=== PATIENT | male | born 1990 | race American Indian/Alaskan Native ===

== ENCOUNTER 2018-03-10 03:30 | Emergency (ER) | payer OTHER ==
[2018-03-10] MEDS ORDERED: Lidocaine 2% 20 ML MDV INFILT ONE (03:31)
--- NOTE | 2018-03-10 03:47 | EDM.PDOCBH ---
ED HPI GENERAL MEDICAL PROBLEM - General Time Seen by Provider: 03/10/18 03:35 Source of Information: Reports: Patient, EMS, Police History Limitations: Reports: No Limitations - History of Present Illness INITIAL COMMENTS - FREE TEXT/NARRATIVE: 27 y.o.NA came to the ed by EMS and the police after he tried to kill himself. Pt was intoxicated on arrival but was Ox3 stating he will not harm himself or others. He has 2 boys. He inflicted wound at his left forearm. Tetanus UTD 5-6 years ago. No N/V/D no other acute medical issues. BP 122/100 Pulse 122, RR 18 Pulse ox 100% on RA Temp 36.8 Onset Date: 03/10/18 Onset Time: 00:05 Duration: Minutes:, Constant Location: Reports: Upper Extremity, Left Quality: Reports: Ache, Burning Severity: Moderate Improves with: Reports: Rest Worsens with: Reports: Movement Context: Reports: Trauma (self inflicted wound) - Related Data Allergies Allergy/AdvReac Type Severity Reaction Status Date / Time No Known Allergies Allergy Verified 03/10/18 03:45 Home Meds: Home Meds Albuterol [Proventil HFA] 1 puff INH ASDIRECTED PRN 03/10/18 [History] Amoxicillin 1,000 mg PO BID 03/10/18 [History] Amoxicillin/Potassium Clav [Augmentin 875-125 Tablet] 1 each PO BID #20 tablet 03/10/18 [Rx] Ranitidine [Zantac] 75 mg PO DAILY 03/10/18 [History] ED ROS GENERAL - Review of Systems Review Of Systems: See Below Constitutional: Reports: No Symptoms HEENT: Reports: No Symptoms Respiratory: Reports: No Symptoms Cardiovascular: Reports: No Symptoms Endocrine: Reports: No Symptoms GI/Abdominal: Reports: No Symptoms : Reports: No Symptoms Musculoskeletal: Reports: No Symptoms Skin: Reports: No Symptoms Neurological: Reports: No Symptoms Psychiatric: Reports: Depression, Suicidal Ideation Hematologic/Lymphatic: Reports: No Symptoms Immunologic: Reports: No Symptoms ED EXAM, BEHAVIORAL HEALTH - Physical Exam Exam: See Below Exam Limited By: No Limitations General Appearance: Alert, WD/WN, Mild Distress Eye Exam: Bilateral Eye: Normal Inspection Ears: Normal External Exam, Normal Canal Nose: Normal Inspection, Normal Mucosa, No Blood Throat/Mouth: Normal Inspection Head: Atraumatic, Normocephalic Neck: Normal Inspection, Supple, Non-Tender, Full Range of Motion Respiratory/Chest: No Respiratory Distress, Lungs Clear, Normal Breath Sounds, No Accessory Muscle Use, Chest Non-Tender Cardiovascular: Normal Peripheral Pulses, Regular Rate, Rhythm, No Edema, No Gallop, No Murmur, No Rub GI/Abdominal: Normal Bowel Sounds, Soft, Non-Tender, No Organomegaly, No Abnormal Bruit, No Mass, Pelvis Stable (Male) Exam: Deferred Rectal (Males) Exam: Deferred Back Exam: Normal Inspection, Full Range of Motion Extremities: Normal Inspection, Normal Range of Motion, Non-Tender, No Pedal Edema, Normal Capillary Refill Neurological: Alert, Normal Mood/Affect, CN II-XII Intact, Normal Cognition, No Motor/Sensory Deficits, Oriented x 3 Skin Exam: Warm, Dry, Signs of self injury (left forearm) ED Add Procedures - Additional/Other Procedure(s) Procedure(s) (Free Text): Left forearm self inflicted wound 3 cm long. Linear. no bleeding cleaned wound with Betadine, local anesthesia 2% lidocaine 2 cc. 5 sutures applied using 4/0 Ethilon, TD UTD ( 5 years ago) No complication. Dressing applied by nurse. COURSE, BEHAVIORAL HEALTH COMP - Course Vital Signs: Last Vital Signs Temp 36.7 C 03/10/18 03:30 Pulse 122 H 03/10/18 03:30 Resp 18 03/10/18 03:30 BP 122/100 H 03/10/18 03:30 Pulse Ox 100 03/10/18 03:30 27 y.o.NA came to the ed by EMS and the police after he tried to kill himself. Pt was intoxicated on arrival but was Ox3 stating he will not harm himself or others. He has 2 boys. He inflicted wound at his left forearm. Tetanus UTD 5-6 years ago. No N/V/D no other acute medical issues. BP 122/100 Pulse 122, RR 18 Pulse ox 100% on RA Temp 36.8 PE: WNWD W M with a self inflicted cuts left forearm Labs: ETOH:0.30 HGB 17.4 BUN 6 Cr 1.1 K 3.1 Procedure: Please see note above Impression: Suicidal attempt, self inflicted wound left forearm, ETOH abuse Tx: Wound care, Rocephine, Thiamine 5.20 am; consultation: Stella Psych: Was cleared, not suicidal Reexam: Pt was cooperative in the ed Plan: D/C with instructions. His uncle picked him up and will observe him for the next 24 hours Orders, Labs, Meds: Laboratory Tests 03/10/18 03/10/18 03/10/18 Range/Units 03:45 03:45 03:45 WBC 8.8 (4.5-12.0) X10-3/uL RBC 5.19 (4.30-5.75) x10(6)uL Hgb 17.4 H (11.5-15.5) g/dL Hct 50.4 (30.0-51.3) % MCV 97.0 H (80-96) fL MCH 33.5 (27.7-33.6) pg MCHC 34.5 (32.2-35.4) g/dL RDW 12.1 (11.5-15.5) % Plt Count 383 H (125-369) X10(3)uL MPV 8.0 (7.4-10.4) fL Add Manual Diff Yes Neutrophils % (Manual) 21 L (46-82) % Lymphocytes % (Manual) 70 H (13-37) % Monocytes % (Manual) 7 (4-12) % Basophils % (Manual) 2 (0-2) % Sodium 140 (135-145) mmol/L Potassium 3.1 L (3.5-5.3) mmol/L Chloride 104 (100-110) mmol/L Carbon Dioxide 25 (21-32) mmol/L BUN 6 L (7-18) mg/dL Creatinine 1.1 (0.70-1.30) mg/dL Est Cr Clr Drug Dosing 90.60 mL/min Estimated GFR (MDRD) > 60 (>60) BUN/Creatinine Ratio 5.5 L (9-20) Glucose 113 (80-116) mg/dL Calcium 8.3 L (8.6-10.2) mg/dL TSH, Ultra Sensitive 3.96 H (0.36-3.74) IU/mL Salicylates 3.1 (2.8-20.0) mg/dL Urine Opiates Screen (NEGATIVE) Ur Oxycodone Screen (NEGATIVE) Ur Propoxyphene Screen (NEGATIVE) Acetaminophen < 2 L (10-30) ug/mL Ur Barbituates Screen (NEGATIVE) Ur Tricyclics Screen (NEGATIVE) Ur Phencyclidine Scrn (NEGATIVE) Ur Amphetamine Screen (NEGATIVE) Urine MDMA Screen (NEGATIVE) U Benzodiazepines Scrn (NEGATIVE) U Cocaine Metab Screen (NEGATIVE) U Marijuana (THC) Screen (NEGATIVE) Ethyl Alcohol 0.30 H* (<0.03) % 03/10/18 Range/Units 04:08 WBC (4.5-12.0) X10-3/uL RBC (4.30-5.75) x10(6)uL Hgb (11.5-15.5) g/dL Hct (30.0-51.3) % MCV (80-96) fL MCH (27.7-33.6) pg MCHC (32.2-35.4) g/dL RDW (11.5-15.5) % Plt Count (125-369) X10(3)uL MPV (7.4-10.4) fL Add Manual Diff Neutrophils % (Manual) (46-82) % Lymphocytes % (Manual) (13-37) % Monocytes % (Manual) (4-12) % Basophils % (Manual) (0-2) % Sodium (135-145) mmol/L Potassium (3.5-5.3) mmol/L Chloride (100-110) mmol/L Carbon Dioxide (21-32) mmol/L BUN (7-18) mg/dL Creatinine (0.70-1.30) mg/dL Est Cr Clr Drug Dosing mL/min Estimated GFR (MDRD) (>60) BUN/Creatinine Ratio (9-20) Glucose (80-116) mg/dL Calcium (8.6-10.2) mg/dL TSH, Ultra Sensitive (0.36-3.74) IU/mL Salicylates (2.8-20.0) mg/dL Urine Opiates Screen Negative (NEGATIVE) Ur Oxycodone Screen Negative (NEGATIVE) Ur Propoxyphene Screen Negative (NEGATIVE) Acetaminophen (10-30) ug/mL Ur Barbituates Screen Negative (NEGATIVE) Ur Tricyclics Screen Negative (NEGATIVE) Ur Phencyclidine Scrn Negative (NEGATIVE) Ur Amphetamine Screen Negative (NEGATIVE) Urine MDMA Screen Positive H (NEGATIVE) U Benzodiazepines Scrn Negative (NEGATIVE) U Cocaine Metab Screen Negative (NEGATIVE) U Marijuana (THC) Screen Negative (NEGATIVE) Ethyl Alcohol (<0.03) % Medications Discontinued Medications Generic Name Dose Route Start Last Admin Trade Name Jolie PRN Reason Stop Dose Admin Ceftriaxone Sodium 1 gm 03/10/18 04:02 03/10/18 05:16 Rocephin IM 03/10/18 04:03 1 gm ONETIME ONE Administration Potassium Chloride 40 meq 03/10/18 05:29 03/10/18 05:36 Klor-Con M20 PO 03/10/18 05:30 40 meq ONETIME ONE Administration Thiamine HCl 100 mg 03/10/18 05:31 03/10/18 05:37 Vitamin B-1 PO 03/10/18 05:32 100 mg ONETIME ONE Administration Departure - Departure Time of Disposition: 05:32 Disposition: Home, Self-Care 01 Condition: Good Clinical Impression: Injury, self-inflicted - Discharge Information Prescriptions: Amoxicillin/Potassium Clav [Augmentin 875-125 Tablet] 1 each PO BID #20 tablet Instructions: Alcohol Intoxication, [id number], Laceration Care, Adult, Easy- to-Read, Stitches, Eva, or Adhesive Wound Closure, [id number] Referrals: PCP,None [Primary Care Provider] - Forms: ED Department Discharge Additional Instructions: You need to be observed for next 24 hours by your uncle, please take the Abx as recommended, please apply Neosporin to wound twice daily for 10 days, please come back if your symptoms get worse acutely
[2018-03-10] MEDS ORDERED: cefTRIAXone 1 GM Vial IM ONE (04:02)
[2018-03-10 04:21] LABS: ACETAMINOPHEN < 2 ug/mL (10-30)
[2018-03-10] MEDS ORDERED: Potassium Chloride 20 MEQ Tab.ER PO ONE (05:29)
[2018-03-10] MEDS ORDERED: Thiamine 100 MG Tab PO ONE (05:31)
== END 2018-03-10 05:54 | disposition home or self-care (01) ==
LOC: FB.ED 03:30
DX: S51.812A Laceration without foreign body of left forearm, initial encounter (principal); F10.10 Alcohol abuse, uncomplicated; X78.9XXA Intentional self-harm by unspecified sharp object, initial encounter; Y90.8 Blood alcohol level of 240 mg/100 ml or more
CPT/HCPCS: 36415; 80048; 80305-QW; 84443; 85025; 96372; 99284; A9270-GY; G0480; J0696

== ENCOUNTER 2018-06-29 11:26 | Emergency (ER) | payer OTHER ==
[2018-06-29] MEDS: Sodium Chloride 0.9% 10 ML Syringe FLUSH PRN ×2 (11:48→12:18)
--- NOTE | 2018-06-29 12:01 | EDM.PDOC ---
ED HPI GENERAL MEDICAL PROBLEM - General Chief Complaint: Drug or Alcohol Abuse Time Seen by Provider: 06/29/18 11:45 Source of Information: Reports: Patient - History of Present Illness INITIAL COMMENTS - FREE TEXT/NARRATIVE: pt comes in asking for help to be detoxed from alcohol. pt report long Hx of alcoholism and inability to quit on his own , pt denies any illicit drug use, any hallucinations, any head injuries or any other medical concerns. report long Hx of anxiety and recurrent panic attacks. Headache Pain Score (Numeric/FACES): 5 - Related Data Allergies Allergy/AdvReac Type Severity Reaction Status Date / Time No Known Allergies Allergy Verified 06/29/18 11:34 Home Meds: Home Meds Albuterol [Proventil HFA] 1 puff INH ASDIRECTED PRN 03/10/18 [History] Ranitidine [Zantac] 75 mg PO DAILY 03/10/18 [History] Past Medical History Psychiatric History: Reports: Anxiety, Depression, Panic Attack. Denies: Suicide Attempt Social & Family History - Family History Family Medical History: Noncontributory - Caffeine Use Caffeine Use: Reports: None - Alcohol Use Days Per Week of Alcohol Use: 7 ED ROS GENERAL - Review of Systems Review Of Systems: See Below Constitutional: Reports: Fatigue HEENT: Reports: No Symptoms Respiratory: Reports: No Symptoms Cardiovascular: Reports: No Symptoms GI/Abdominal: Reports: No Symptoms, Nausea Musculoskeletal: Reports: No Symptoms Skin: Reports: No Symptoms Neurological: Reports: Confusion Psychiatric: Reports: No Symptoms, Anxiety, Confusion, Depression. Denies: Hallucinations, Homicidal Ideation, Suicidal Ideation ED EXAM, GENERAL - Physical Exam Exam: See Below Exam Limited By: Other (pt appear anxious) Course - Vital Signs Text/Narrative:: pt resting comfortably after ativan and fluids. labs results were reviewed with pt, pt now changed his mind about going to treatment, states that he feels fin and he think he can do this on his own. pt has reliable support and he is stable medically for discharge. Last Recorded V/S: Last Vital Signs Temp 36.3 C 06/29/18 11:30 Pulse 99 06/29/18 11:30 Resp 20 06/29/18 11:30 BP 154/92 H 06/29/18 11:30 Pulse Ox 99 06/29/18 11:30 - Orders/Labs/Meds Orders: Active Orders 24 hr Category Date Time Status Sodium Chloride 0.9% [Normal Saline] 1,000 ml Med 06/29/18 12:04 Active IV .BOLUS Sodium Chloride 0.9% [Saline Flush] Med 06/29/18 11:48 Active 10 ml FLUSH ASDIRECTED PRN Medication Orders Sodium Chloride (Normal Saline) 1,000 mls @ 999 drops/hr IV .BOLUS ONE Stop: 06/30/18 03:04 Last Admin: 06/29/18 12:16 Dose: 999 drops/hr Sodium Chloride (Saline Flush) 10 ml FLUSH ASDIRECTED PRN PRN Reason: IV Use Last Admin: 06/29/18 12:18 Dose: 10 ml Admin: 06/29/18 11:48 Dose: 10 ml Labs: Laboratory Tests 06/29/18 06/29/18 06/29/18 Range/Units 12:12 12:15 12:15 WBC 7.2 (4.5-12.0) X10-3/uL RBC 4.86 (4.30-5.75) x10(6)uL Hgb 16.1 (13.5-17.8) g/dL Hct 47.3 (30.0-51.3) % MCV 97.4 H (80-96) fL MCH 33.1 (27.7-33.6) pg MCHC 33.9 (32.2-35.4) g/dL RDW 11.7 (11.5-15.5) % Plt Count 162 (125-369) X10(3)uL MPV 8.8 (7.4-10.4) fL Neut % (Auto) 71.8 (46-82) % Lymph % (Auto) 16.1 (13-37) % [place] % (Auto) 9.5 (4-12) % Eos % (Auto) 0 L (1.0-5.0) % Baso % (Auto) 2 (0-2) % Neut # (Auto) 5.1 (1.6-8.3) # Lymph # (Auto) 1.2 (0.6-5.0) # [place] # (Auto) 0.7 (0.0-1.3) # Eos # (Auto) 0.0 (0.0-0.8) # Baso # (Auto) 0.2 (0.0-0.2) # Sodium 139 (135-145) mmol/L Potassium 3.9 (3.5-5.3) mmol/L Chloride 99 L D (100-110) mmol/L Carbon Dioxide 22 (21-32) mmol/L BUN 6 L (7-18) mg/dL Creatinine 0.8 (0.70-1.30) mg/dL Est Cr Clr Drug Dosing 119.07 mL/min Estimated GFR (MDRD) > 60 (>60) BUN/Creatinine Ratio 7.5 L (9-20) Glucose 84 (80-116) mg/dL Calcium 8.8 (8.6-10.2) mg/dL Total Bilirubin 1.8 H (0.1-1.3) mg/dL AST 103 H (5-25) IU/L ALT 105 H (12-36) U/L Alkaline Phosphatase 76 (56-112) IU/L Total Protein 7.4 (6.0-8.0) g/dL Albumin 3.9 (3.5-5.2) g/dL Globulin 3.5 g/dL Albumin/Globulin Ratio 1.1 Urine Opiates Screen Negative (NEGATIVE) Ur Oxycodone Screen Negative (NEGATIVE) Ur Propoxyphene Screen Negative (NEGATIVE) Ur Barbituates Screen Negative (NEGATIVE) Ur Tricyclics Screen Negative (NEGATIVE) Ur Phencyclidine Scrn Negative (NEGATIVE) Ur Amphetamine Screen Negative (NEGATIVE) Urine MDMA Screen Negative (NEGATIVE) U Benzodiazepines Scrn Negative (NEGATIVE) U Cocaine Metab Screen Negative (NEGATIVE) U Marijuana (THC) Screen Negative (NEGATIVE) Ethyl Alcohol (<0.03) % 06/29/18 Range/Units 12:15 WBC (4.5-12.0) X10-3/uL RBC (4.30-5.75) x10(6)uL Hgb (13.5-17.8) g/dL Hct (30.0-51.3) % MCV (80-96) fL MCH (27.7-33.6) pg MCHC (32.2-35.4) g/dL RDW (11.5-15.5) % Plt Count (125-369) X10(3)uL MPV (7.4-10.4) fL Neut % (Auto) (46-82) % Lymph % (Auto) (13-37) % [place] % (Auto) (4-12) % Eos % (Auto) (1.0-5.0) % Baso % (Auto) (0-2) % Neut # (Auto) (1.6-8.3) # Lymph # (Auto) (0.6-5.0) # [place] # (Auto) (0.0-1.3) # Eos # (Auto) (0.0-0.8) # Baso # (Auto) (0.0-0.2) # Sodium (135-145) mmol/L Potassium (3.5-5.3) mmol/L Chloride (100-110) mmol/L Carbon Dioxide (21-32) mmol/L BUN (7-18) mg/dL Creatinine (0.70-1.30) mg/dL Est Cr Clr Drug Dosing mL/min Estimated GFR (MDRD) (>60) BUN/Creatinine Ratio (9-20) Glucose (80-116) mg/dL Calcium (8.6-10.2) mg/dL Total Bilirubin (0.1-1.3) mg/dL AST (5-25) IU/L ALT (12-36) U/L Alkaline Phosphatase (56-112) IU/L Total Protein (6.0-8.0) g/dL Albumin (3.5-5.2) g/dL Globulin g/dL Albumin/Globulin Ratio Urine Opiates Screen (NEGATIVE) Ur Oxycodone Screen (NEGATIVE) Ur Propoxyphene Screen (NEGATIVE) Ur Barbituates Screen (NEGATIVE) Ur Tricyclics Screen (NEGATIVE) Ur Phencyclidine Scrn (NEGATIVE) Ur Amphetamine Screen (NEGATIVE) Urine MDMA Screen (NEGATIVE) U Benzodiazepines Scrn (NEGATIVE) U Cocaine Metab Screen (NEGATIVE) U Marijuana (THC) Screen (NEGATIVE) Ethyl Alcohol < 0.03 (<0.03) % Meds: Medications Generic Name Dose Route Start Last Admin Trade Name Freq PRN Reason Stop Dose Admin Sodium Chloride 1,000 mls @ 999 drops/hr 06/29/18 12:04 06/29/18 12:16 Normal Saline IV 06/30/18 03:04 999 drops/hr .BOLUS ONE Administration Sodium Chloride 10 ml 06/29/18 11:48 06/29/18 12:18 Saline Flush FLUSH 10 ml ASDIRECTED PRN Administration IV Use Discontinued Medications Generic Name Dose Route Start Last Admin Trade Name Freq PRN Reason Stop Dose Admin Lorazepam 1 mg 06/29/18 12:04 06/29/18 12:18 Ativan IVPUSH 06/29/18 12:05 1 mg ONETIME ONE Administration Departure - Departure Time of Disposition: 14:00 Disposition: Home, Self-Care 01 Clinical Impression: Alcohol abuse - Discharge Information *PRESCRIPTION DRUG MONITORING PROGRAM REVIEWED*: Not Applicable *COPY OF PRESCRIPTION DRUG MONITORING REPORT IN PATIENT LIVIA: Not Applicable Referrals: PCP,None [Primary Care Provider] - Forms: ED Department Discharge - Problem List & Annotations (1) Alcohol abuse SNOMED Code(s): 42181613 Code(s): F10.10 - ALCOHOL ABUSE, UNCOMPLICATED Status: Acute Current Visit: Yes - My Orders Last 24 Hours: My Active Orders 06/29/18 11:48 Sodium Chloride 0.9% [Saline Flush] 10 ml FLUSH ASDIRECTED PRN 06/29/18 12:04 Sodium Chloride 0.9% [Normal Saline] 1,000 ml IV .BOLUS - Assessment/Plan Last 24 Hours: My Active Orders 06/29/18 11:48 Sodium Chloride 0.9% [Saline Flush] 10 ml FLUSH ASDIRECTED PRN 06/29/18 12:04 Sodium Chloride 0.9% [Normal Saline] 1,000 ml IV .BOLUS
[2018-06-29] MEDS ORDERED: Sodium Chloride 0.9% 1,000 ML IV ONE (12:04)
[2018-06-29] MEDS ORDERED: LORazepam 2 MG/ML SDV IVPUSH ONE (12:04)
== END 2018-06-29 15:26 | disposition home or self-care (01) ==
LOC: FB.ED 11:26
DX: F10.20 Alcohol dependence, uncomplicated (principal); Y90.0 Blood alcohol level of less than 20 mg/100 ml; Z79.899 Other long term (current) drug therapy
CPT/HCPCS: 36415; 80053; 80305; 85025; 96361; 96374; 99285; G0480; J2060; J7030

== ENCOUNTER 2018-07-17 01:55 | Emergency (ER) | payer OTHER ==
[2018-07-17] MEDS ORDERED: LORazepam 2 MG/ML SDV IVPUSH ONE (02:04)
[2018-07-17] MEDS ORDERED: Sodium Chloride 0.9% 1,000 ML IV ONE ×2 (02:04→02:57)
--- NOTE | 2018-07-17 02:07 | EDM.PDOC ---
ED HPI GENERAL MEDICAL PROBLEM - General Stated Complaint: withdrawls Time Seen by Provider: 07/17/18 02:03 Source of Information: Reports: Patient, EMS, Family (friend) History Limitations: Reports: Intoxication - History of Present Illness INITIAL COMMENTS - FREE TEXT/NARRATIVE: 28 y.o.w.m wit a H/O ETOH abuse, drinks daily 1 liter of Sunshine, his last drink was at 9 pm last night, came to te ED due to N/V. His his girlfriend called 911. Pt did denied N/V on arrival. No trauma. He c/o worst headache ass well. No family is present. No other acute med issues. BP 141/90 RR 16 Pulse ox 100% on RA Pulse 117 Temp 36.6 Onset Date: 07/16/18 Onset Time: 21:00 Duration: Hour(s):, Intermittent Location: Reports: Head, Generalized Quality: Reports: Ache Severity: Moderate Improves with: Reports: Medication, Other (ETOH intake) Worsens with: Reports: Other (withdrawel) Context: Reports: Other (ETOH abuse) Associated Symptoms: Reports: Other (H/A ) Treatments ONLINE MEDIA DIRECTOR: Reports: Other (see below) (ETOH abuse) - Related Data Allergies Allergy/AdvReac Type Severity Reaction Status Date / Time bees Allergy Rash Uncoded 07/17/18 03:14 Home Meds: Home Meds Albuterol [Proventil HFA] 1 puff INH ASDIRECTED PRN 03/10/18 [History] Ranitidine [Zantac] 75 mg PO DAILY 03/10/18 [History] Past Medical History Respiratory History: Reports: Asthma Psychiatric History: Reports: Anxiety, Depression, Panic Attack. Denies: Suicide Attempt Social & Family History - Family History Family Medical History: Noncontributory - Caffeine Use Caffeine Use: Reports: None Review of Systems - Review of Systems Review Of Systems: See Below Constitutional: Reports: No Symptoms Eyes: Reports: No Symptoms Ears: Reports: No Symptoms Nose: Reports: No Symptoms Mouth/Throat: Reports: No Symptoms Respiratory: Reports: No Symptoms Cardiovascular: Reports: No Symptoms GI/Abdominal: Reports: No Symptoms Genitourinary: Reports: No Symptoms Musculoskeletal: Reports: No Symptoms Skin: Reports: No Symptoms Neurological: Reports: Headache Psychiatric: Reports: Anxiety ED EXAM, GENERAL - Physical Exam Exam: See Below Exam Limited By: Intoxication General Appearance: Alert, WD/WN, Moderate Distress Eye Exam: Bilateral Eye: Normal Inspection Ears: Normal External Exam Ear Exam: Bilateral Ear: Auricle Normal Nose: Normal Inspection, No Blood, Other (dry mucosal membrane) Throat/Mouth: Normal Inspection, Normal Lips, Normal Voice, No Airway Compromise , Other (poor dentition) Head: Atraumatic, Normocephalic Neck: Normal Inspection, Supple, Non-Tender Respiratory/Chest: No Respiratory Distress, Lungs Clear, Normal Breath Sounds, No Accessory Muscle Use Cardiovascular: Normal Peripheral Pulses, Regular Rate, Rhythm, No Edema, No Gallop, No JVD, No Murmur, No Rub GI/Abdominal: Normal Bowel Sounds, Soft, Non-Tender, No Organomegaly, No Abnormal Bruit, No Mass (Male) Exam: No Hernia Rectal (Males) Exam: Deferred Back Exam: Normal Inspection, Full Range of Motion Extremities: Normal Inspection, Normal Range of Motion Neurological: Alert, Oriented, CN II-XII Intact, Normal Cognition, Abnormal Gait (initially) Psychiatric: Anxious Skin Exam: Warm, Dry, Intact, Normal Color, No Rash Lymphatic: No Adenopathy Course - Vital Signs Text/Narrative:: 28 y.o.w.m wit a H/O ETOH abuse, drinks daily 1 liter of Sunshine, his last drink was at 9 pm last night, came to te ED due to N/V. His his girlfriend called 911. Pt did denied N/V on arrival. No trauma. He c/o worst headache ass well. No family is present. No other acute med issues. BP 141/90 RR 16 Pulse ox 100% on RA Pulse 117 Temp 36.6 PE: WNWD W M with anxiety and ETOH odor Imaging: CT Head: Mild sinus disease Labs: WBC 3.7 MCV 97.5 Na 147 ETOH 0.19, reminder of labs were basically nl Impression: ETOH abuse/withdrawal, Tension H/H Tx: Ativan, NS, Thiamin, Folic acid, MVT Reexam: Improved, Detox has no beds. Plan: D/C with girlfriend/mom with instructions Last Recorded V/S: Last Vital Signs Temp 36.7 C 07/17/18 04:20 Pulse 105 H 07/17/18 04:20 Resp 16 07/17/18 04:20 BP 125/79 07/17/18 04:20 Pulse Ox 100 07/17/18 04:20 - Orders/Labs/Meds Labs: Laboratory Tests 07/17/18 07/17/18 07/17/18 Range/Units 02:25 02:25 02:25 WBC 3.7 L (4.5-12.0) X10-3/uL RBC 4.57 (4.30-5.75) x10(6)uL Hgb 15.4 (13.5-17.8) g/dL Hct 44.6 (30.0-51.3) % MCV 97.5 H (80-96) fL MCH 33.7 H (27.7-33.6) pg MCHC 34.6 (32.2-35.4) g/dL RDW 11.7 (11.5-15.5) % Plt Count 186 (125-369) X10(3)uL MPV 8.3 (7.4-10.4) fL Neut % (Auto) 64.3 (46-82) % Lymph % (Auto) 22.3 (13-37) % [place] % (Auto) 12.0 (4-12) % Eos % (Auto) 0 L (1.0-5.0) % Baso % (Auto) 1 (0-2) % Neut # (Auto) 2.5 (1.6-8.3) # Lymph # (Auto) 0.8 (0.6-5.0) # [place] # (Auto) 0.4 (0.0-1.3) # Eos # (Auto) 0.0 (0.0-0.8) # Baso # (Auto) 0.0 (0.0-0.2) # PT 10.1 (8.7-11.1) INR 1.04 (0.89-1.13) Sodium 146 H (135-145) mmol/L Potassium 3.5 (3.5-5.3) mmol/L Chloride 108 D (100-110) mmol/L Carbon Dioxide 26 (21-32) mmol/L BUN 7 (7-18) mg/dL Creatinine 1.3 (0.70-1.30) mg/dL Est Cr Clr Drug Dosing TNP Estimated GFR (MDRD) > 60 (>60) BUN/Creatinine Ratio 5.4 L (9-20) Glucose 102 (80-116) mg/dL Calcium 8.3 L (8.6-10.2) mg/dL Magnesium (1.8-2.5) mg/dL Urine Opiates Screen (NEGATIVE) Ur Oxycodone Screen (NEGATIVE) Ur Propoxyphene Screen (NEGATIVE) Ur Barbituates Screen (NEGATIVE) Ur Tricyclics Screen (NEGATIVE) Ur Phencyclidine Scrn (NEGATIVE) Ur Amphetamine Screen (NEGATIVE) Urine MDMA Screen (NEGATIVE) U Benzodiazepines Scrn (NEGATIVE) U Cocaine Metab Screen (NEGATIVE) U Marijuana (THC) Screen (NEGATIVE) Ethyl Alcohol (<0.03) % 07/17/18 07/17/18 07/17/18 Range/Units 02:25 02:25 02:33 WBC (4.5-12.0) X10-3/uL RBC (4.30-5.75) x10(6)uL Hgb (13.5-17.8) g/dL Hct (30.0-51.3) % MCV (80-96) fL MCH (27.7-33.6) pg MCHC (32.2-35.4) g/dL RDW (11.5-15.5) % Plt Count (125-369) X10(3)uL MPV (7.4-10.4) fL Neut % (Auto) (46-82) % Lymph % (Auto) (13-37) % [place] % (Auto) (4-12) % Eos % (Auto) (1.0-5.0) % Baso % (Auto) (0-2) % Neut # (Auto) (1.6-8.3) # Lymph # (Auto) (0.6-5.0) # [place] # (Auto) (0.0-1.3) # Eos # (Auto) (0.0-0.8) # Baso # (Auto) (0.0-0.2) # PT (8.7-11.1) INR (0.89-1.13) Sodium (135-145) mmol/L Potassium (3.5-5.3) mmol/L Chloride (100-110) mmol/L Carbon Dioxide (21-32) mmol/L BUN (7-18) mg/dL Creatinine (0.70-1.30) mg/dL Est Cr Clr Drug Dosing Estimated GFR (MDRD) (>60) BUN/Creatinine Ratio (9-20) Glucose (80-116) mg/dL Calcium (8.6-10.2) mg/dL Magnesium 1.9 (1.8-2.5) mg/dL Urine Opiates Screen Negative (NEGATIVE) Ur Oxycodone Screen Negative (NEGATIVE) Ur Propoxyphene Screen Negative (NEGATIVE) Ur Barbituates Screen Negative (NEGATIVE) Ur Tricyclics Screen Negative (NEGATIVE) Ur Phencyclidine Scrn Negative (NEGATIVE) Ur Amphetamine Screen Negative (NEGATIVE) Urine MDMA Screen Negative (NEGATIVE) U Benzodiazepines Scrn Negative (NEGATIVE) U Cocaine Metab Screen Negative (NEGATIVE) U Marijuana (THC) Screen Negative (NEGATIVE) Ethyl Alcohol 0.19 H* (<0.03) % Meds: Medications Discontinued Medications Generic Name Dose Route Start Last Admin Trade Name Freq PRN Reason Stop Dose Admin Folic Acid 1 mg 07/17/18 02:59 07/17/18 03:07 Folic Acid PO 07/17/18 03:00 1 mg ONETIME ONE Administration Sodium Chloride 1,000 mls @ 999 mls/hr 07/17/18 02:04 07/17/18 02:07 Normal Saline IV 07/17/18 03:04 999 mls/hr .BOLUS ONE Administration Thiamine HCl 100 mg/ Sodium 101 mls @ 202 mls/hr 07/17/18 02:37 07/17/18 02: 46 Chloride IV 07/17/18 02:38 202 mls/hr ONETIME ONE Administration Sodium Chloride 1,000 mls @ 999 mls/hr 07/17/18 02:57 07/17/18 03:44 Normal Saline IV 07/17/18 03:57 999 mls/hr .BOLUS ONE Administration Ketorolac Tromethamine 30 mg 07/17/18 03:29 07/17/18 03:34 Toradol IVPUSH 07/17/18 03:30 30 mg ONETIME ONE Administration Lorazepam 1 mg 07/17/18 02:04 07/17/18 02:23 Ativan IVPUSH 07/17/18 02:05 1 mg ONETIME ONE Administration Multivitamins/Minerals/Vitamin C 1 tab 07/17/18 02:59 07/17/18 03:07 Tab-A-Harper PO 07/17/18 03:00 1 tab ONETIME STA Administration Departure - Departure Time of Disposition: 03:43 Disposition: Home, Self-Care 01 Condition: Good Clinical Impression: ETOH abuse, Tension headache - Discharge Information Instructions: Alcohol Intoxication, [place] Referrals: PCP,None [Primary Care Provider] - Forms: ED Department Discharge Additional Instructions: Please take Thiamin, Folic acid and MVT daily. NO ETOH, please f/u with your PMD , come back if your symptoms get worse
[2018-07-17] MEDS ORDERED: Thiamine 100 MG in Sodium Chloride 0.9% 100 ML IV ONE (02:37)
[2018-07-17] MEDS ORDERED: Folic Acid 1 MG Tab PO ONE (02:59)
[2018-07-17] MEDS ORDERED: Multivitamin Tab PO STA (02:59)
[2018-07-17] MEDS ORDERED: Ketorolac 30 MG/ML SDV IVPUSH ONE (03:29)
== END 2018-07-17 04:22 | disposition home or self-care (01) ==
LOC: FB.ED 01:56
DX: F10.239 Alcohol dependence with withdrawal, unspecified (principal); G44.209 Tension-type headache, unspecified, not intractable; Y90.6 Blood alcohol level of 120-199 mg/100 ml; Z91.030 Bee allergy status
CPT/HCPCS: 36415; 70450; 80048; 80305; 83735; 85025; 85610; 96361; 96365; 96375; 99284; A9270; G0480; J1885; J2060; J3411; J7030

== ENCOUNTER 2018-07-23 22:13 | Emergency (ER) | payer OTHER ==
--- NOTE | 2018-07-23 22:22 | EDM.PDOC ---
ED HPI GENERAL MEDICAL PROBLEM - General Stated Complaint: ALCOHOL AUGUST Time Seen by Provider: 07/23/18 22:13 Source of Information: Reports: Patient History Limitations: Reports: No Limitations, Language Barrier - History of Present Illness INITIAL COMMENTS - FREE TEXT/NARRATIVE: 28 y.o.w.m with a H/O suicidal attempt, H/O chronic ETOH abuse, came to the ed today in order to go the detox. Pt's last ETOH intake was today. No suicidal ideation/attempt. Pt has 3 children and a girlfriend. He came by himself, requesting to be transferred to detox. Pt has mild epigastric discomfort with nausea, no vomiting. No F/C no CP no SOB or any other acute medical issues. Pt is cooperative. BP 132/84 Pulse 84 RR 16 Pulse ox 98% on RA Temp 36.6 Onset Date: 07/20/18 Onset Time: 08:00 Duration: Day(s):, Intermittent Location: Reports: Abdomen Quality: Reports: Burning, Same as Previous Episode Severity: Mild Improves with: Reports: Eating Worsens with: Reports: Other (etoh) Context: Reports: Other (etoh) Associated Symptoms: Reports: Other (intoxicated) - Related Data Allergies Allergy/AdvReac Type Severity Reaction Status Date / Time bees Allergy Rash Uncoded 07/23/18 22:51 Home Meds: Home Meds Albuterol [Proventil HFA] 1 puff INH ASDIRECTED PRN 03/10/18 [History] Ranitidine [Zantac] 75 mg PO DAILY 03/10/18 [History] Past Medical History Respiratory History: Reports: Asthma Gastrointestinal History: Reports: GERD Psychiatric History: Reports: Anxiety, Depression, Panic Attack. Denies: Suicide Attempt - Past Surgical History HEENT Surgical History: Reports: Myringotomy w Tube(s) Social & Family History - Family History Family Medical History: Noncontributory - Caffeine Use Caffeine Use: Reports: None ED ROS GENERAL - Review of Systems Review Of Systems: See Below Constitutional: Reports: No Symptoms HEENT: Reports: No Symptoms Respiratory: Reports: No Symptoms Cardiovascular: Reports: No Symptoms Endocrine: Reports: No Symptoms GI/Abdominal: Reports: Abdominal Pain (epigastric) : Reports: No Symptoms Musculoskeletal: Reports: No Symptoms Skin: Reports: No Symptoms Neurological: Reports: No Symptoms Psychiatric: Reports: No Symptoms Hematologic/Lymphatic: Reports: No Symptoms Immunologic: Reports: No Symptoms ED EXAM, GENERAL - Physical Exam Exam: See Below Exam Limited By: Intoxication General Appearance: Alert, WD/WN, Mild Distress Eye Exam: Bilateral Eye: Normal Inspection Ears: Normal External Exam Ear Exam: Bilateral Ear: Auricle Normal Nose: Normal Inspection, Normal Mucosa, No Blood Throat/Mouth: Normal Inspection, Normal Lips, Normal Voice, No Airway Compromise , Other (poor dentition) Head: Atraumatic, Normocephalic Neck: Normal Inspection, Supple, Non-Tender, Full Range of Motion Respiratory/Chest: No Respiratory Distress, Lungs Clear, Normal Breath Sounds Cardiovascular: Normal Peripheral Pulses, Regular Rate, Rhythm, No Edema, No Gallop Peripheral Pulses: 1+: Brachial (R) GI/Abdominal: Normal Bowel Sounds, Soft, No Organomegaly, No Abnormal Bruit, No Mass, Pelvis Stable, Tender (epigastric) (Male) Exam: No Hernia Rectal (Males) Exam: Deferred Back Exam: Normal Inspection, Full Range of Motion Extremities: Normal Inspection, Normal Range of Motion, Non-Tender, No Pedal Edema, Normal Capillary Refill Neurological: Alert, Oriented, CN II-XII Intact, Normal Cognition, Normal Gait Psychiatric: Normal Affect, Normal Mood Skin Exam: Warm, Dry, Intact, Normal Color, No Rash Lymphatic: No Adenopathy Course - Vital Signs Text/Narrative:: 28 y.o.w.m with a H/O suicidal attempt, H/O chronic ETOH abuse, came to the ed today in order to go the detox. Pt's last ETOH intake was today. No suicidal ideation/attempt. Pt has 3 children and a girlfriend. He came by himself, requesting to be transferred to detox. Pt has mild epigastric discomfort with nausea, no vomiting. No F/C no CP no SOB or any other acute medical issues. Pt is cooperative. BP 132/84 Pulse 84 RR 16 Pulse ox 98% on RA Temp 36.6 PE: WNWD W F with ETOH intoxication Labs: CBC nl except MCV 97.6 Plts 115 BMP nl except Ca 8.3, UDS pos for Opioids and ETOH 0.25 Impression: Chronic ETOH abuse, Positive UDS Tx: Zofran Reexm: Pt was doing fine in the ED Plan: Transfer by the police to [facility], refused, then, his girlfriend arrived and took him to [facility] Last Recorded V/S: Last Vital Signs Temp 36.6 C 07/23/18 23:08 Pulse 95 07/23/18 23:08 Resp 16 07/23/18 23:08 BP 131/84 07/23/18 23:08 Pulse Ox 98 07/23/18 23:08 - Orders/Labs/Meds Labs: Laboratory Tests 07/23/18 07/23/18 07/23/18 Range/Units 22:35 22:35 22:35 WBC 8.8 (4.5-12.0) X10-3/uL RBC 4.91 (4.30-5.75) x10(6)uL Hgb 16.9 (13.5-17.8) g/dL Hct 48.0 (30.0-51.3) % MCV 97.6 H (80-96) fL MCH 34.5 H (27.7-33.6) pg MCHC 35.3 (32.2-35.4) g/dL RDW 12.1 (11.5-15.5) % Plt Count 118 L (125-369) X10(3)uL MPV 8.6 (7.4-10.4) fL Neut % (Auto) 83.8 H (46-82) % Lymph % (Auto) 7.6 L (13-37) % [place] % (Auto) 7.9 (4-12) % Eos % (Auto) 0 L (1.0-5.0) % Baso % (Auto) 1 (0-2) % Neut # (Auto) 7.3 (1.6-8.3) # Lymph # (Auto) 0.7 (0.6-5.0) # [place] # (Auto) 0.7 (0.0-1.3) # Eos # (Auto) 0.0 (0.0-0.8) # Baso # (Auto) 0.1 (0.0-0.2) # Sodium 139 (135-145) mmol/L Potassium 3.8 (3.5-5.3) mmol/L Chloride 101 D (100-110) mmol/L Carbon Dioxide 25 (21-32) mmol/L BUN 8 (7-18) mg/dL Creatinine 0.8 (0.70-1.30) mg/dL Est Cr Clr Drug Dosing TNP Estimated GFR (MDRD) > 60 (>60) BUN/Creatinine Ratio 10.0 (9-20) Glucose 104 (80-116) mg/dL Calcium 8.5 L (8.6-10.2) mg/dL Salicylates 1.3 L (<2.8) mg/dL Urine Opiates Screen (NEGATIVE) Ur Oxycodone Screen (NEGATIVE) Ur Propoxyphene Screen (NEGATIVE) Acetaminophen < 2 L (<2) ug/mL Ur Barbituates Screen (NEGATIVE) Ur Tricyclics Screen (NEGATIVE) Ur Phencyclidine Scrn (NEGATIVE) Ur Amphetamine Screen (NEGATIVE) Urine MDMA Screen (NEGATIVE) U Benzodiazepines Scrn (NEGATIVE) U Cocaine Metab Screen (NEGATIVE) U Marijuana (THC) Screen (NEGATIVE) Ethyl Alcohol 0.25 H* (<0.03) % 07/23/18 Range/Units 22:45 WBC (4.5-12.0) X10-3/uL RBC (4.30-5.75) x10(6)uL Hgb (13.5-17.8) g/dL Hct (30.0-51.3) % MCV (80-96) fL MCH (27.7-33.6) pg MCHC (32.2-35.4) g/dL RDW (11.5-15.5) % Plt Count (125-369) X10(3)uL MPV (7.4-10.4) fL Neut % (Auto) (46-82) % Lymph % (Auto) (13-37) % [place] % (Auto) (4-12) % Eos % (Auto) (1.0-5.0) % Baso % (Auto) (0-2) % Neut # (Auto) (1.6-8.3) # Lymph # (Auto) (0.6-5.0) # [place] # (Auto) (0.0-1.3) # Eos # (Auto) (0.0-0.8) # Baso # (Auto) (0.0-0.2) # Sodium (135-145) mmol/L Potassium (3.5-5.3) mmol/L Chloride (100-110) mmol/L Carbon Dioxide (21-32) mmol/L BUN (7-18) mg/dL Creatinine (0.70-1.30) mg/dL Est Cr Clr Drug Dosing Estimated GFR (MDRD) (>60) BUN/Creatinine Ratio (9-20) Glucose (80-116) mg/dL Calcium (8.6-10.2) mg/dL Salicylates (<2.8) mg/dL Urine Opiates Screen Positive H (NEGATIVE) Ur Oxycodone Screen Negative (NEGATIVE) Ur Propoxyphene Screen Negative (NEGATIVE) Acetaminophen (<2) ug/mL Ur Barbituates Screen Negative (NEGATIVE) Ur Tricyclics Screen Negative (NEGATIVE) Ur Phencyclidine Scrn Negative (NEGATIVE) Ur Amphetamine Screen Negative (NEGATIVE) Urine MDMA Screen Negative (NEGATIVE) U Benzodiazepines Scrn Negative (NEGATIVE) U Cocaine Metab Screen Negative (NEGATIVE) U Marijuana (THC) Screen Negative (NEGATIVE) Ethyl Alcohol (<0.03) % Meds: Medications Discontinued Medications Generic Name Dose Route Start Last Admin Trade Name Jolie PRN Reason Stop Dose Admin Ondansetron HCl 8 mg 07/23/18 23:17 07/23/18 23:36 Zofran Odt PO 07/23/18 23:18 8 mg ONETIME ONE Administration Departure - Departure Time of Disposition: 23:55 Disposition: DC/Tfer to Other 70 Condition: Fair Clinical Impression: ETOH abuse - Discharge Information Referrals: PCP,None [Primary Care Provider] - Forms: ED Department Discharge
[2018-07-23 22:57] LABS: ACETAMINOPHEN < 2 ug/mL (<2)
[2018-07-23] MEDS ORDERED: Ondansetron 8 MG Tab.DIS PO ONE (23:17)
== END 2018-07-24 00:09 | disposition other institution (70) ==
LOC: FB.ED 22:13
DX: F10.120 Alcohol abuse with intoxication, uncomplicated (principal); Y90.8 Blood alcohol level of 240 mg/100 ml or more; R82.5 Elevated urine levels of drugs, medicaments and biological substances; Z91.030 Bee allergy status
CPT/HCPCS: 36415; 80048; 80305; 85025; 99284; A9270; G0480

== ENCOUNTER 2018-07-26 14:25 | Emergency (ER) | payer OTHER ==
[2018-07-26] MEDS ORDERED: LORazepam 0.5 MG Tab PO ONE (14:26)
[2018-07-26] MEDS ORDERED: MVI, Adult with Vitamin K 10 ML, Thiamine 100 MG, Folic Acid 1 MG, Magnesium Sulfate 2 ... IV SCH ×5 (15:00)
[2018-07-26] MEDS ORDERED: Sodium Chloride 0.9% 10 ML Syringe FLUSH PRN (15:00)
[2018-07-26] MEDS ORDERED: LORazepam 2 MG/ML SDV IVPUSH ONE (15:01)
--- NOTE | 2018-07-26 15:07 | EDM.PDOCBH ---
ED HPI GENERAL MEDICAL PROBLEM - General Chief Complaint: Behavioral/Psych Stated Complaint: ALCOHOL WITHDRAWLS Time Seen by Provider: 07/26/18 15:02 Source of Information: Reports: Patient History Limitations: Reports: No Limitations - History of Present Illness INITIAL COMMENTS - FREE TEXT/NARRATIVE: Presents with alcohol withdrawal symptoms. Patient has been weaning alcohol intake x 4 days, last consumed @0600. Normal intake was 1 L hard alcohol per day prior. Has had some visual hallucinations (sees black spots), complains of feeling tremulous. Has had some nausea, no vomiting. Patient states that he will be admitting himself to [facility] in [place], [place] on 07/28/18. Patient denies suicidal ideation. Duration: Day(s): (4) Severity: Moderate - Related Data Allergies Allergy/AdvReac Type Severity Reaction Status Date / Time bees Allergy Rash Uncoded 07/23/18 22:51 Home Meds: Home Meds Albuterol [Proventil HFA] 1 puff INH ASDIRECTED PRN 03/10/18 [History] Ranitidine [Zantac] 75 mg PO DAILY 03/10/18 [History] Past Medical History Respiratory History: Reports: Asthma Gastrointestinal History: Reports: GERD Psychiatric History: Reports: Anxiety, Depression, Panic Attack. Denies: Suicide Attempt - Past Surgical History HEENT Surgical History: Reports: Myringotomy w Tube(s) Social & Family History - Family History Family Medical History: Noncontributory - Tobacco Use Smoking Status *Q: Former Smoker Tobacco Use Within Last Twelve Months: Cigarettes - Caffeine Use Caffeine Use: Reports: None - Alcohol Use Alcohol Use History: Yes Alcohol Use Frequency: Daily ED ROS GENERAL - Review of Systems Review Of Systems: ROS reveals no pertinent complaints other than HPI. ED EXAM, BEHAVIORAL HEALTH - Physical Exam Exam: See Below Exam Limited By: No Limitations General Appearance: Alert, WD/WN, No Apparent Distress Eye Exam: Bilateral Eye: EOMI, PERRL Ears: Normal External Exam Nose: Normal Inspection Throat/Mouth: Normal Inspection, No Airway Compromise Head: Atraumatic, Normocephalic Respiratory/Chest: No Respiratory Distress, Lungs Clear, Normal Breath Sounds Cardiovascular: Regular Rate, Rhythm, No Murmur GI/Abdominal: Soft, Tender (mild epigastric) Extremities: Normal Range of Motion Neurological: Alert, Normal Reflexes, No Motor/Sensory Deficits, Oriented x 3 Psychiatric: Alert, Normal Cognition, Oriented, Other (Anxious) COURSE, BEHAVIORAL HEALTH COMP - Course Vital Signs: BP 136/96, T 97.6, HR 88, Sa02 100% RA Orders, Labs, Meds: Active Orders 24 hr Category Date Time Status MVI, Adult with Vitamin K [Infuvite Adult] 10 ml Med 07/26/18 15:00 Active Thiamine [Vitamin B-1] 100 mg Folic Acid 1 mg Magnesium Sulfate [Magnesium Sulfate 50%] 2 gm Sodium Chloride 0.9% [Normal Saline] 1,000 ml IV ASDIRECTED Sodium Chloride 0.9% [Saline Flush] Med 07/26/18 15:00 Active 10 ml FLUSH ASDIRECTED PRN Saline Lock Insert [OM.PC] Routine Oth 07/26/18 15:00 Ordered Medication Orders Multivitamins/Minerals 10 ml/Thiamine HCl 100 mg/ Folic Acid 1 mg/ Magnesium Sulfate 2 gm/ Sodium Chloride 1,015.2 mls @ 500 mls/hr IV ASDIRECTED ANJELICA Last Admin: 07/26/18 15:50 Dose: 500 mls/hr Sodium Chloride (Saline Flush) 10 ml FLUSH ASDIRECTED PRN PRN Reason: Keep Vein Open Last Admin: 07/26/18 15:50 Dose: 10 ml Laboratory Tests 07/26/18 07/26/18 07/26/18 Range/Units 15:15 15:15 15:15 WBC 10.3 (4.5-12.0) X10-3/uL RBC 4.57 (4.30-5.75) x10(6)uL Hgb 15.7 (13.5-17.8) g/dL Hct 44.7 (30.0-51.3) % MCV 97.9 H (80-96) fL MCH 34.3 H (27.7-33.6) pg MCHC 35.1 (32.2-35.4) g/dL RDW 12.3 (11.5-15.5) % Plt Count 107 L (125-369) X10(3)uL MPV 8.8 (7.4-10.4) fL Neut % (Auto) 74.8 (46-82) % Lymph % (Auto) 12.8 L (13-37) % [place] % (Auto) 10.3 (4-12) % Eos % (Auto) 1 (1.0-5.0) % Baso % (Auto) 1 (0-2) % Neut # (Auto) 7.7 (1.6-8.3) # Lymph # (Auto) 1.3 (0.6-5.0) # [place] # (Auto) 1.1 (0.0-1.3) # Eos # (Auto) 0.1 (0.0-0.8) # Baso # (Auto) 0.1 (0.0-0.2) # PT (8.7-11.1) INR (0.89-1.13) Sodium 137 (135-145) mmol/L Potassium 3.8 (3.5-5.3) mmol/L Chloride 99 L (100-110) mmol/L Carbon Dioxide 24 (21-32) mmol/L BUN 9 (7-18) mg/dL Creatinine 0.8 (0.70-1.30) mg/dL Est Cr Clr Drug Dosing TNP Estimated GFR (MDRD) > 60 (>60) BUN/Creatinine Ratio 11.3 (9-20) Glucose 94 (80-116) mg/dL Calcium 8.8 (8.6-10.2) mg/dL Magnesium 1.8 (1.8-2.5) mg/dL Total Bilirubin 1.7 H (0.1-1.3) mg/dL AST 201 H* D (5-25) IU/L ALT 154 H* D (12-36) U/L Alkaline Phosphatase 86 (56-112) IU/L Total Protein 7.3 (6.0-8.0) g/dL Albumin 3.9 (3.5-5.2) g/dL Globulin 3.4 g/dL Albumin/Globulin Ratio 1.2 Amylase 46 (25-115) U/L Salicylates < 2.8 L (<2.8) mg/dL Urine Opiates Screen (NEGATIVE) Ur Oxycodone Screen (NEGATIVE) Ur Propoxyphene Screen (NEGATIVE) Acetaminophen < 2 L (<2) ug/mL Ur Barbituates Screen (NEGATIVE) Ur Tricyclics Screen (NEGATIVE) Ur Phencyclidine Scrn (NEGATIVE) Ur Amphetamine Screen (NEGATIVE) Urine MDMA Screen (NEGATIVE) U Benzodiazepines Scrn (NEGATIVE) U Cocaine Metab Screen (NEGATIVE) U Marijuana (THC) Screen (NEGATIVE) Ethyl Alcohol < 0.03 (<0.03) % 07/26/18 07/26/18 Range/Units 15:15 15:53 WBC (4.5-12.0) X10-3/uL RBC (4.30-5.75) x10(6)uL Hgb (13.5-17.8) g/dL Hct (30.0-51.3) % MCV (80-96) fL MCH (27.7-33.6) pg MCHC (32.2-35.4) g/dL RDW (11.5-15.5) % Plt Count (125-369) X10(3)uL MPV (7.4-10.4) fL Neut % (Auto) (46-82) % Lymph % (Auto) (13-37) % [place] % (Auto) (4-12) % Eos % (Auto) (1.0-5.0) % Baso % (Auto) (0-2) % Neut # (Auto) (1.6-8.3) # Lymph # (Auto) (0.6-5.0) # [place] # (Auto) (0.0-1.3) # Eos # (Auto) (0.0-0.8) # Baso # (Auto) (0.0-0.2) # PT 9.9 (8.7-11.1) INR 1.02 (0.89-1.13) Sodium (135-145) mmol/L Potassium (3.5-5.3) mmol/L Chloride (100-110) mmol/L Carbon Dioxide (21-32) mmol/L BUN (7-18) mg/dL Creatinine (0.70-1.30) mg/dL Est Cr Clr Drug Dosing Estimated GFR (MDRD) (>60) BUN/Creatinine Ratio (9-20) Glucose (80-116) mg/dL Calcium (8.6-10.2) mg/dL Magnesium (1.8-2.5) mg/dL Total Bilirubin (0.1-1.3) mg/dL AST (5-25) IU/L ALT (12-36) U/L Alkaline Phosphatase (56-112) IU/L Total Protein (6.0-8.0) g/dL Albumin (3.5-5.2) g/dL Globulin g/dL Albumin/Globulin Ratio Amylase (25-115) U/L Salicylates (<2.8) mg/dL Urine Opiates Screen Negative (NEGATIVE) Ur Oxycodone Screen Negative (NEGATIVE) Ur Propoxyphene Screen Negative (NEGATIVE) Acetaminophen (<2) ug/mL Ur Barbituates Screen Negative (NEGATIVE) Ur Tricyclics Screen Negative (NEGATIVE) Ur Phencyclidine Scrn Negative (NEGATIVE) Ur Amphetamine Screen Negative (NEGATIVE) Urine MDMA Screen Negative (NEGATIVE) U Benzodiazepines Scrn Negative (NEGATIVE) U Cocaine Metab Screen Negative (NEGATIVE) U Marijuana (THC) Screen Negative (NEGATIVE) Ethyl Alcohol (<0.03) % Medications Generic Name Dose Route Start Last Admin Trade Name Freq PRN Reason Stop Dose Admin Multivitamins/Minerals 10 ml/ 1,015.2 mls @ 500 mls/hr 07/26/18 15:00 15:50 Thiamine HCl 100 mg/ Folic IV 500 mls/hr Acid 1 mg/ Magnesium Sulfate 2 ASDIRECTED ANJELICA Administration gm/ Sodium Chloride Sodium Chloride 10 ml 07/26/18 15:00 07/26/18 15:50 Saline Flush FLUSH 10 ml ASDIRECTED PRN Administration Keep Vein Open Discontinued Medications Generic Name Dose Route Start Last Admin Trade Name Freq PRN Reason Stop Dose Admin Lorazepam 1 mg 07/26/18 15:01 07/26/18 15:49 Ativan IVPUSH 07/26/18 15:02 1 mg ONETIME ONE Administration Re-Assessment/Re-Exam: Patient feels much improved after IVF and Ativan 1 mg IV. Ativan 0.5 mg #8 tab dispensed in the ED (1-2 tablets q6h prn). Departure - Departure Time of Disposition: 18:29 Disposition: Home, Self-Care 01 Condition: Good Clinical Impression: Alcoholic liver disease Alcohol withdrawal Qualifiers: Complication of substance-induced condition: uncomplicated Qualified Code(s): F10.230 - Alcohol dependence with withdrawal, uncomplicated - Discharge Information *PRESCRIPTION DRUG MONITORING PROGRAM REVIEWED*: Yes *COPY OF PRESCRIPTION DRUG MONITORING REPORT IN PATIENT LIVIA: No Instructions: Alcoholic Liver Disease, [id number], Alcohol Withdrawal Syndrome, Lorazepam tablets Referrals: PCP,Not In Area [Primary Care Provider] - Forms: ED Department Discharge Additional Instructions: Take Ativan as needed for withdrawal symptoms, do not drink alcohol while taking Ativan. Also take a multivitamin daily. Keep your appointment with [facility] on 07/28/18. Return to the ER if symptoms worsen. - My Orders Last 24 Hours: My Active Orders 07/26/18 15:00 MVI, Adult with Vitamin K [Infuvite Adult] 10 ml Thiamine [Vitamin B-1] 100 mg Folic Acid 1 mg Magnesium Sulfate [Magnesium Sulfate 50%] 2 gm Sodium Chloride 0.9% [Normal Saline] 1,000 ml IV ASDIRECTED Sodium Chloride 0.9% [Saline Flush] 10 ml FLUSH ASDIRECTED PRN Saline Lock Insert [OM.PC] Routine - Assessment/Plan Last 24 Hours: My Active Orders 07/26/18 15:00 MVI, Adult with Vitamin K [Infuvite Adult] 10 ml Thiamine [Vitamin B-1] 100 mg Folic Acid 1 mg Magnesium Sulfate [Magnesium Sulfate 50%] 2 gm Sodium Chloride 0.9% [Normal Saline] 1,000 ml IV ASDIRECTED Sodium Chloride 0.9% [Saline Flush] 10 ml FLUSH ASDIRECTED PRN Saline Lock Insert [OM.PC] Routine
[2018-07-26 15:46] LABS: ACETAMINOPHEN < 2 ug/mL (<2)
== END 2018-07-26 18:30 | disposition home or self-care (01) ==
LOC: FB.ED 14:25
DX: K70.9 Alcoholic liver disease, unspecified (principal); F10.230 Alcohol dependence with withdrawal, uncomplicated; Y90.1 Blood alcohol level of 20-39 mg/100 ml; F41.9 Anxiety disorder, unspecified; F32.9 Major depressive disorder, single episode, unspecified; K21.9 Gastro-esophageal reflux disease without esophagitis; J45.909 Unspecified asthma, uncomplicated; Z79.899 Other long term (current) drug therapy; Z87.891 Personal history of nicotine dependence; Z91.030 Bee allergy status
CPT/HCPCS: 36415; 80053; 80305; 82150; 83735; 85025; 85610; 96365; 96366; 96375; 99284; A9270; G0480; J2060; J3411; J3475; J7030; J3490

== ENCOUNTER 2018-11-17 12:59 | Emergency (ER) | payer OTHER ==
[2018-11-17] MEDS ORDERED: Potassium Chloride 10 MEQ Tab.ER PO ONE (13:00)
[2018-11-17] MEDS ORDERED: LORazepam 0.5 MG Tab PO ONE (13:00)
[2018-11-17] MEDS ORDERED: Sodium Chloride 0.9% 10 ML Syringe FLUSH PRN (13:01)
[2018-11-17] MEDS ORDERED: LORazepam 2 MG/ML SDV IVPUSH ONE (13:02)
[2018-11-17] MEDS ORDERED: Thiamine 100 MG in Sodium Chloride 0.9% 100 ML IV ONE (13:04)
[2018-11-17] MEDS ORDERED: Ondansetron 4 MG/2 ML SDV IVPUSH ONE (13:14)
[2018-11-17] MEDS ORDERED: Sodium Chloride 0.9% 1,000 ML IV SCH (13:15)
[2018-11-17] MEDS ORDERED: cloNIDine 0.1 MG/Day Transdermal Patch TRDERM SCH (13:15)
--- NOTE | 2018-11-17 15:20 | EDM.PDOCBH ---
ED HPI GENERAL MEDICAL PROBLEM - General Chief Complaint: Drug or Alcohol Abuse Stated Complaint: ALCOHOL WITHDRAWAL Time Seen by Provider: 11/17/18 13:00 Source of Information: Reports: Patient History Limitations: Reports: No Limitations - History of Present Illness INITIAL COMMENTS - FREE TEXT/NARRATIVE: Patient is a 28 YO male who has known history of chronic alcoholism presented to the ED because of fear that he will go into withdrawal from alcohol. He drank 4 cans of flavored beer yesterday and 2 cans of E-[employer] liquor this morning, his last drink was at 10 am. He said he is trying to wean himself from daily drinking but couldn't. She c/o nausea ,vomiting,denies having any abdominal pain. - Related Data Allergies Allergy/AdvReac Type Severity Reaction Status Date / Time bees Allergy Rash Uncoded 07/23/18 22:51 Home Meds: Home Meds Albuterol [Proventil HFA] 1 puff INH ASDIRECTED PRN 03/10/18 [History] Ranitidine [Zantac] 75 mg PO DAILY 03/10/18 [History] Past Medical History Respiratory History: Reports: Asthma Gastrointestinal History: Reports: GERD Psychiatric History: Reports: Anxiety, Depression, Panic Attack. Denies: Suicide Attempt - Past Surgical History HEENT Surgical History: Reports: Myringotomy w Tube(s) Social & Family History - Family History Family Medical History: Noncontributory - Caffeine Use Caffeine Use: Reports: None ED ROS GENERAL - Review of Systems Review Of Systems: See Below Constitutional: Reports: No Symptoms HEENT: Reports: No Symptoms Respiratory: Reports: No Symptoms Cardiovascular: Reports: No Symptoms Endocrine: Reports: No Symptoms GI/Abdominal: Reports: Nausea, Vomiting. Denies: Abdominal Pain Neurological: Reports: No Symptoms. Denies: Confusion, Headache Psychiatric: Reports: Anxiety. Denies: Confusion, Hallucinations, Homicidal Ideation, Suicidal Ideation ED EXAM, BEHAVIORAL HEALTH - Physical Exam Exam: See Below Exam Limited By: No Limitations Ears: Normal External Exam, Normal Canal Nose: Normal Inspection, Normal Mucosa Throat/Mouth: Normal Inspection, Normal Lips, Normal Teeth Head: Atraumatic, Normocephalic Neck: Normal Inspection, Supple, Non-Tender Respiratory/Chest: No Respiratory Distress, Lungs Clear, Normal Breath Sounds, No Accessory Muscle Use GI/Abdominal: Normal Bowel Sounds, Soft, Non-Tender, No Organomegaly Extremities: Normal Inspection, Normal Range of Motion, No Pedal Edema Neurological: Alert, Normal Mood/Affect, CN II-XII Intact, Normal Cognition Psychiatric: Alert, Normal Affect, Normal Mood, Oriented. No: Restless, Tearful COURSE, BEHAVIORAL HEALTH COMP - Course Vital Signs: labs reviewed and discussed with patient saline 1 L bolus ativan 1 mg IV x1 thiamine 1 mg IV x1 initial CIWAA score-13 and prior to discharge-3 I told him that he can stay in the hospital but he would rather go home since he is feeling much better and just want to have ativan and follow up with his doctor at the [facility] in [place] tomorrow. He was informed that if he changes his decision to be admitted or his symptoms are getting worse inspite of the ativan and vistaril to return to the ED anytime. Orders, Labs, Meds: Active Orders 24 hr Category Date Time Status Sodium Chloride 0.9% [Normal Saline] 1,000 ml Med 11/17/18 13:15 Active IV ASDIRECTED Sodium Chloride 0.9% [Saline Flush] Med 11/17/18 13:01 Active 10 ml FLUSH ASDIRECTED PRN Saline Lock Insert [OM.PC] Routine Oth 11/17/18 13:01 Ordered Medication Orders Sodium Chloride (Normal Saline) 1,000 mls @ 1,000 mls/hr IV ASDIRECTED ANJELICA Last Admin: 11/17/18 13:28 Dose: 1,000 mls/hr Sodium Chloride (Saline Flush) 10 ml FLUSH ASDIRECTED PRN PRN Reason: Keep Vein Open Laboratory Tests 11/17/18 11/17/18 11/17/18 Range/Units 13:15 13:15 13:15 WBC 5.8 (4.5-12.0) X10-3/uL RBC 4.68 (4.30-5.75) x10(6)uL Hgb 15.8 (13.5-17.8) g/dL Hct 45.4 (30.0-51.3) % MCV 97.1 H (80-96) fL MCH 33.9 H (27.7-33.6) pg MCHC 34.9 (32.2-35.4) g/dL RDW 13.5 (11.5-15.5) % Plt Count 134 (125-369) X10(3)uL MPV 8.4 (7.4-10.4) fL Neut % (Auto) 60.1 (46-82) % Lymph % (Auto) 24.1 (13-37) % [place] % (Auto) 14.2 H (4-12) % Eos % (Auto) 1 (1.0-5.0) % Baso % (Auto) 1 (0-2) % Neut # (Auto) 3.5 (1.6-8.3) # Lymph # (Auto) 1.4 (0.6-5.0) # [place] # (Auto) 0.8 (0.0-1.3) # Eos # (Auto) 0.0 (0.0-0.8) # Baso # (Auto) 0.1 (0.0-0.2) # Sodium 139 (135-145) mmol/L Potassium 3.0 L (3.5-5.3) mmol/L Chloride 101 (100-110) mmol/L Carbon Dioxide 26 (21-32) mmol/L BUN 3 L (7-18) mg/dL Creatinine 0.8 (0.70-1.30) mg/dL Est Cr Clr Drug Dosing TNP Estimated GFR (MDRD) > 60 (>60) BUN/Creatinine Ratio 3.8 L (9-20) Glucose 128 H (80-116) mg/dL Calcium 8.3 L (8.6-10.2) mg/dL Phosphorus 2.6 (2.6-4.6) mg/dL Magnesium 1.9 (1.8-2.5) mg/dL Total Bilirubin 0.7 (0.1-1.3) mg/dL AST 171 H* D (5-25) IU/L ALT 109 H D (12-36) U/L Alkaline Phosphatase 93 (56-112) IU/L Total Protein 7.3 (6.0-8.0) g/dL Albumin 3.7 (3.5-5.2) g/dL Globulin 3.6 g/dL Albumin/Globulin Ratio 1.0 Amylase 42 (25-115) U/L Lipase 300 (73-393) U/L Urine Opiates Screen (NEGATIVE) Ur Oxycodone Screen (NEGATIVE) Ur Propoxyphene Screen (NEGATIVE) Ur Barbituates Screen (NEGATIVE) Ur Tricyclics Screen (NEGATIVE) Ur Phencyclidine Scrn (NEGATIVE) Ur Amphetamine Screen (NEGATIVE) Urine MDMA Screen (NEGATIVE) U Benzodiazepines Scrn (NEGATIVE) U Cocaine Metab Screen (NEGATIVE) U Marijuana (THC) Screen (NEGATIVE) Ethyl Alcohol (<0.03) % 11/17/18 11/17/18 Range/Units 13:15 15:00 WBC (4.5-12.0) X10-3/uL RBC (4.30-5.75) x10(6)uL Hgb (13.5-17.8) g/dL Hct (30.0-51.3) % MCV (80-96) fL MCH (27.7-33.6) pg MCHC (32.2-35.4) g/dL RDW (11.5-15.5) % Plt Count (125-369) X10(3)uL MPV (7.4-10.4) fL Neut % (Auto) (46-82) % Lymph % (Auto) (13-37) % [place] % (Auto) (4-12) % Eos % (Auto) (1.0-5.0) % Baso % (Auto) (0-2) % Neut # (Auto) (1.6-8.3) # Lymph # (Auto) (0.6-5.0) # [place] # (Auto) (0.0-1.3) # Eos # (Auto) (0.0-0.8) # Baso # (Auto) (0.0-0.2) # Sodium (135-145) mmol/L Potassium (3.5-5.3) mmol/L Chloride (100-110) mmol/L Carbon Dioxide (21-32) mmol/L BUN (7-18) mg/dL Creatinine (0.70-1.30) mg/dL Est Cr Clr Drug Dosing Estimated GFR (MDRD) (>60) BUN/Creatinine Ratio (9-20) Glucose (80-116) mg/dL Calcium (8.6-10.2) mg/dL Phosphorus (2.6-4.6) mg/dL Magnesium (1.8-2.5) mg/dL Total Bilirubin (0.1-1.3) mg/dL AST (5-25) IU/L ALT (12-36) U/L Alkaline Phosphatase (56-112) IU/L Total Protein (6.0-8.0) g/dL Albumin (3.5-5.2) g/dL Globulin g/dL Albumin/Globulin Ratio Amylase (25-115) U/L Lipase (73-393) U/L Urine Opiates Screen Negative (NEGATIVE) Ur Oxycodone Screen Negative (NEGATIVE) Ur Propoxyphene Screen Negative (NEGATIVE) Ur Barbituates Screen Negative (NEGATIVE) Ur Tricyclics Screen Negative (NEGATIVE) Ur Phencyclidine Scrn Negative (NEGATIVE) Ur Amphetamine Screen Negative (NEGATIVE) Urine MDMA Screen Negative (NEGATIVE) U Benzodiazepines Scrn Positive H (NEGATIVE) U Cocaine Metab Screen Negative (NEGATIVE) U Marijuana (THC) Screen Negative (NEGATIVE) Ethyl Alcohol 0.09 H (<0.03) % Medications Generic Name Dose Route Start Last Admin Trade Name Freq PRN Reason Stop Dose Admin Sodium Chloride 1,000 mls @ 1,000 mls/hr 11/17/18 13:15 11/17/18 13:28 Normal Saline IV 1,000 mls/hr ASDIRECTED ANJELICA Administration Sodium Chloride 10 ml 11/17/18 13:01 Saline Flush FLUSH ASDIRECTED PRN Keep Vein Open Discontinued Medications Generic Name Dose Route Start Last Admin Trade Name Freq PRN Reason Stop Dose Admin Clonidine HCl 0.2 mg 11/17/18 13:15 Catapres-Tts 1 TRDERM Q7D ANJELICA Thiamine HCl 100 mg/ Sodium 101 mls @ 202 mls/hr 11/17/18 13:04 11/17/18 13: 56 Chloride IV 11/17/18 13:05 202 mls/hr ONETIME ONE Administration Lorazepam 1 mg 11/17/18 13:02 11/17/18 13:34 Ativan IVPUSH 11/17/18 13:03 1 mg ONETIME ONE Administration Ondansetron HCl 4 mg 11/17/18 13:14 11/17/18 13:39 Zofran IVPUSH 11/17/18 13:15 4 mg ONETIME ONE Administration Departure - Departure Time of Disposition: 15:30 Disposition: Home, Self-Care 01 Condition: Good Clinical Impression: Alcohol abuse - Discharge Information *PRESCRIPTION DRUG MONITORING PROGRAM REVIEWED*: No *COPY OF PRESCRIPTION DRUG MONITORING REPORT IN PATIENT LIVIA: No Referrals: PCP,None [Primary Care Provider] - Forms: ED Department Discharge Additional Instructions: take ativan 0.5 mg every 8 hours as needed for anxiety Hydroxyzine 50 mg every 8 hours as needed for anxiety Follow up with your doctor tomorrow or return to the ED anytime if your symptoms are getting worse inspite of taking the ativan and hydroxyzine. - My Orders Last 24 Hours: My Active Orders 11/17/18 13:01 Sodium Chloride 0.9% [Saline Flush] 10 ml FLUSH ASDIRECTED PRN Saline Lock Insert [OM.PC] Routine 11/17/18 13:15 Sodium Chloride 0.9% [Normal Saline] 1,000 ml IV ASDIRECTED - Assessment/Plan Last 24 Hours: My Active Orders 11/17/18 13:01 Sodium Chloride 0.9% [Saline Flush] 10 ml FLUSH ASDIRECTED PRN Saline Lock Insert [OM.PC] Routine 11/17/18 13:15 Sodium Chloride 0.9% [Normal Saline] 1,000 ml IV ASDIRECTED
== END 2018-11-17 16:15 | disposition home or self-care (01) ==
LOC: FB.ED 12:59
DX: F10.10 Alcohol abuse, uncomplicated (principal); K21.9 Gastro-esophageal reflux disease without esophagitis; Z91.030 Bee allergy status; Y90.0 Blood alcohol level of less than 20 mg/100 ml
CPT/HCPCS: 36415; 80053; 80305; 80320; 82150; 83690; 83735; 84100; 85025; 96365; 96375; 99284; J2060; J2405; J3411; J7030; A9270-GY; G0480

== ENCOUNTER 2018-12-16 16:23 | Emergency (ER) | payer OTHER ==
[2018-12-16] MEDS ORDERED: Cephalexin 500 MG Cap PO ONE (16:24)
--- NOTE | 2018-12-16 16:50 | EDM.PDOC ---
ED HPI GENERAL MEDICAL PROBLEM - General Chief Complaint: Upper Extremity Injury/Pain Stated Complaint: LT HAND INFECTED Time Seen by Provider: 12/16/18 16:30 Source of Information: Reports: Patient - History of Present Illness INITIAL COMMENTS - FREE TEXT/NARRATIVE: Patient presented to the ED because of pain,swelling,redness and pus discharge on the left index finger. He punctured the base of his left index finger when he climbed a fence 4-5 days ago. He noticed some pus coming out today. he denies having any fever or chills. LEFT HAND AND ARM Pain Score (Numeric/FACES): 10 - Related Data Allergies Allergy/AdvReac Type Severity Reaction Status Date / Time bees Allergy Cannot Uncoded 12/16/18 16:33 Remember Home Meds: Home Meds LORazepam [Ativan] 0.5 mg PO Q8H PRN #10 tablet 11/17/18 [Rx] Potassium Chloride [Klor-Con] 40 meq PO Q2H 1 Days #10 packet 11/17/18 [Rx] hydrOXYzine HCl [Atarax] 50 mg PO Q8H PRN #30 tab 11/17/18 [Rx] cephALEXin [Keflex] 500 mg PO Q8H #30 cap 12/16/18 [Rx] Past Medical History Respiratory History: Reports: Asthma Gastrointestinal History: Reports: GERD Psychiatric History: Reports: Anxiety, Depression, Panic Attack. Denies: Suicide Attempt Other Psychiatric History: Alcohol abuse, withdrawal issues. - Past Surgical History HEENT Surgical History: Reports: Myringotomy w Tube(s) Social & Family History - Family History Family Medical History: Noncontributory - Caffeine Use Caffeine Use: Reports: None Review of Systems - Review of Systems Review Of Systems: See Below Constitutional: Reports: No Symptoms Ears: Reports: No Symptoms Nose: Reports: No Symptoms Mouth/Throat: Reports: No Symptoms Respiratory: Reports: No Symptoms Cardiovascular: Reports: No Symptoms GI/Abdominal: Reports: No Symptoms Genitourinary: Reports: No Symptoms Musculoskeletal: Reports: No Symptoms Skin: Reports: No Symptoms, Other (wound left inedx) ED EXAM, GENERAL - Physical Exam Exam: See Below Exam Limited By: No Limitations General Appearance: Alert, No Apparent Distress Ears: Normal External Exam, Normal Canal Nose: Normal Inspection, Normal Mucosa, No Blood Throat/Mouth: Normal Inspection, Normal Lips Head: Atraumatic, Normocephalic Neck: Normal Inspection, Supple, Non-Tender, Full Range of Motion Respiratory/Chest: No Respiratory Distress, Lungs Clear, Normal Breath Sounds, No Accessory Muscle Use, Chest Non-Tender Cardiovascular: Normal Peripheral Pulses, Regular Rate, Rhythm, No Edema, No Gallop, No Rub GI/Abdominal: Normal Bowel Sounds, Soft, Non-Tender, No Organomegaly (Male) Exam: No Hernia, Normal Inspection, Normal Prostate, Circumcised Back Exam: Normal Inspection, Full Range of Motion Extremities: Normal Inspection, Normal Range of Motion Skin Exam: Warm, Other (avulsed nail left index finger) Course - Vital Signs Text/Narrative:: Tdap Procedure note Last Recorded V/S: Last Vital Signs Temp 37.1 C 12/16/18 17:50 Pulse 118 H 12/16/18 17:50 Resp 18 12/16/18 17:50 BP 125/86 12/16/18 17:50 Pulse Ox 98 12/16/18 17:50 - Orders/Labs/Meds Orders: Active Orders 24 hr Category Date Time Status Vaccines to be Administered [RC] PER UNIT ROUTINE Care 12/16/18 17:35 Active Meds: Medications Discontinued Medications Generic Name Dose Route Start Last Admin Trade Name Jolie PRN Reason Stop Dose Admin Diphtheria/Tetanus/Acell Pertussis 0.5 ml 12/16/18 17:34 12/16/18 17:46 Adacel IM 12/16/18 17:35 0.5 ml .ONCE ONE Administration Departure - Departure Time of Disposition: 16:40 Disposition: Home, Self-Care 01 Condition: Good Clinical Impression: Cellulitis - Discharge Information *PRESCRIPTION DRUG MONITORING PROGRAM REVIEWED*: No *COPY OF PRESCRIPTION DRUG MONITORING REPORT IN PATIENT LIVIA: No Prescriptions: cephALEXin [Keflex] 500 mg PO Q8H #30 cap Instructions: Cellulitis, Adult Referrals: PCP,None [Primary Care Provider] - Forms: ED Department Discharge Additional Instructions: please read discharge instructions on cellulitis and abscess soak in lukewarm water(1 tsp salt in 1 glass of water) keflex 500 mg 3 times daily for 10 days Ibuprofen 800 mg with tylenol 1000 mg every 8 hours as needed for pain Follow up as needed - My Orders Last 24 Hours: My Active Orders 12/16/18 17:35 Vaccines to be Administered [RC] PER UNIT ROUTINE - Assessment/Plan Last 24 Hours: My Active Orders 12/16/18 17:35 Vaccines to be Administered [RC] PER UNIT ROUTINE
[2018-12-16] MEDS: Diphtheria,Pertussis(Acell),Tetanus Vaccine 0.5 ML SDV IM ONE (17:46)
== END 2018-12-16 17:50 | disposition home or self-care (01) ==
LOC: FB.ED 16:23
DX: L03.012 Cellulitis of left finger (principal); J45.909 Unspecified asthma, uncomplicated; F41.9 Anxiety disorder, unspecified; F32.9 Major depressive disorder, single episode, unspecified; Z23 Encounter for immunization; Z91.030 Bee allergy status
CPT/HCPCS: 90471; 90715; 99282; A9270-GY

== ENCOUNTER 2019-01-07 22:22 | Inpatient (IN) | payer OTHER ==
[2019-01-07] MEDS ORDERED: Sodium Chloride 0.9% 1,000 ML IV SCH (22:40)
[2019-01-07] MEDS: Sodium Chloride 0.9% 10 ML Syringe FLUSH PRN (22:40)
[2019-01-07] MEDS ORDERED: LORazepam 2 MG/ML SDV IVPUSH ONE (23:23)
[2019-01-07] MEDS ORDERED: Ondansetron 4 MG/2 ML SDV IVPUSH ONE (23:23)
--- NOTE | 2019-01-07 23:23 | EDM.PDOC ---
ED HPI GENERAL MEDICAL PROBLEM - General Chief Complaint: Abdominal Pain Stated Complaint: ABDOMINAL PAIN; SHAKES; DIZZY; Time Seen by Provider: 01/07/19 23:00 Source of Information: Reports: Patient History Limitations: Reports: No Limitations - History of Present Illness INITIAL COMMENTS - FREE TEXT/NARRATIVE: pt c/o being restless and anxious, also nausea, poor feeding and dry heaves this evening, report epigastric discomfort , pt has Hx of heavy alcoholism and anxiety, tells me last drink was 2 days ago and that he was out of his Ativan 1 mg TID now for a wek, pt denies any illicit drug use, denies any fever or blood in stool or emesis, denies any hallucinations or Sz , denies any other associated sx or medical concerns. ABDOMEN PAIN Pain Score (Numeric/FACES): 4 - Related Data Allergies Allergy/AdvReac Type Severity Reaction Status Date / Time bees Allergy Cannot Uncoded 01/07/19 22:34 Remember Home Meds: Home Meds LORazepam [Ativan] 0.5 mg PO Q8H PRN #10 tablet 11/17/18 [Rx] Past Medical History Respiratory History: Reports: Asthma Gastrointestinal History: Reports: GERD Psychiatric History: Reports: Addiction, Anxiety, Depression, Panic Attack Other Psychiatric History: Alcohol abuse, withdrawal issues. - Past Surgical History HEENT Surgical History: Reports: Myringotomy w Tube(s) Social & Family History - Family History Family Medical History: Noncontributory - Tobacco Use Smoking Status *Q: Current Every Day Smoker Years of Tobacco use: 10 Packs/Tins Daily: 0.5 - Caffeine Use Caffeine Use: Reports: None - Recreational Drug Use Recreational Drug Use: No ED ROS GENERAL - Review of Systems Review Of Systems: See Below Constitutional: Reports: No Symptoms Respiratory: Reports: No Symptoms Cardiovascular: Reports: No Symptoms GI/Abdominal: Reports: Abdominal Pain, Nausea. Denies: Black Stool, Bloody Stool, Constipation, Diarrhea, Hematochezia, Stool Incontinence : Reports: No Symptoms Musculoskeletal: Reports: No Symptoms Skin: Reports: No Symptoms Neurological: Reports: No Symptoms Psychiatric: Reports: Anxiety. Denies: Agitation, Hallucinations, Suicidal Ideation ED EXAM, GENERAL - Physical Exam Exam: See Below Exam Limited By: No Limitations General Appearance: Anxious Ears: Normal External Exam Nose: Normal Inspection Throat/Mouth: Normal Inspection Head: Atraumatic Neck: Normal Inspection Respiratory/Chest: No Respiratory Distress, Lungs Clear, Normal Breath Sounds Cardiovascular: Normal Peripheral Pulses GI/Abdominal: Normal Bowel Sounds, Soft, Non-Tender Extremities: Normal Inspection, Normal Range of Motion Neurological: Alert, Oriented, CN II-XII Intact Psychiatric: Normal Affect, Normal Mood Skin Exam: Warm Course - Vital Signs Text/Narrative:: labs results were explained to pt. pt has mildly elevated liver enzymes and elevated lipase. pt has acute pancreatitis and its likely secondary to alcohol use, will admit pt , continue with hydration, keep him NPO for now. and treat pain and nausea with morphine and zofran. Last Recorded V/S: Last Vital Signs Temp 36.9 C 01/07/19 22:35 Pulse 82 01/07/19 23:45 Resp 18 01/07/19 23:45 BP 138/96 H 01/07/19 23:45 Pulse Ox 99 01/07/19 23:45 - Orders/Labs/Meds Orders: Active Orders 24 hr Category Date Time Status Patient Status [ADT] Routine ADT 01/08/19 00:06 Ordered Antiembolic Devices [RC] .Routine Care 01/08/19 00:08 Ordered Pulse Oximetry [RC] PRN Care 01/08/19 00:06 Ordered Up ad Yulia [RC] ASDIRECTED Care 01/08/19 00:06 Ordered VTE/DVT Education [RC] Click to Edit Care 01/08/19 00:08 Ordered Vital Signs [RC] Q4H Care 01/08/19 00:06 Ordered Nothing per Oral Now Diet [DIET] Diet 01/08/19 Breakfast Ordered COMPREHENSIVE METABOLIC PN,CMP [CHEM] Stat Lab 01/08/19 00:12 Ordered LIPASE [CHEM] Stat Lab 01/08/19 07:00 Ordered LORazepam [Ativan] Med 01/08/19 00:10 Ordered 1 mg IVPUSH Q8H PRN Morphine Med 01/08/19 00:10 Ordered 4 mg IVPUSH Q4H PRN Ondansetron [Zofran] Med 01/08/19 00:15 Ordered 4 mg IVPUSH Q4H Sodium Chloride 0.9% @ 150 MLS/HR (1000ml) Med 01/08/19 00:15 Ordered Sodium Chloride 0.9% [Normal Saline] 1,000 ml IV ASDIRECTED Sodium Chloride 0.9% [Normal Saline] 1,000 ml Med 01/07/19 22:40 Active IV ASDIRECTED Sodium Chloride 0.9% [Saline Flush] Med 01/07/19 22:35 Active 10 ml FLUSH ASDIRECTED PRN DVT/VTE Prophylaxis Reflex [OM.PC] Per Unit Routine Oth 01/08/19 00:06 Ordered Peripheral IV Insertion Adult [OM.PC] Routine Oth 01/07/19 22:35 Ordered Resuscitation Status Routine Resus Stat 01/08/19 00:06 Ordered Medication Orders Sodium Chloride (Normal Saline) 1,000 mls @ 999 mls/hr IV ASDIRECTED ANJELICA Last Admin: 01/07/19 22:40 Dose: 999 mls/hr Sodium Chloride (Normal Saline) 1,000 mls @ 150 mls/hr IV ASDIRECTED ANJELICA Lorazepam (Ativan) 1 mg IVPUSH Q8H PRN PRN Reason: Anxiety Morphine Sulfate (Morphine) 4 mg IVPUSH Q4H PRN PRN Reason: Pain Ondansetron HCl (Zofran) 4 mg IVPUSH Q4H ANJELICA Sodium Chloride (Saline Flush) 10 ml FLUSH ASDIRECTED PRN PRN Reason: Keep Vein Open Last Admin: 01/07/19 22:40 Dose: 10 ml Labs: Laboratory Tests 01/07/19 01/07/19 01/07/19 Range/Units 23:38 23:38 23:38 WBC 13.4 H (4.5-12.0) X10-3/uL RBC 4.44 (4.30-5.75) x10(6)uL Hgb 15.5 (13.5-17.8) g/dL Hct 44.4 (30.0-51.3) % MCV 100.0 H (80-96) fL MCH 34.9 H (27.7-33.6) pg MCHC 34.9 (32.2-35.4) g/dL RDW 12.3 (11.5-15.5) % Plt Count 150 (125-369) X10(3)uL MPV 8.3 (7.4-10.4) fL Add Manual Diff Yes Neutrophils % (Manual) 82 (46-82) % Band Neutrophils % 1 (0-6) % Lymphocytes % (Manual) 10 L (13-37) % Monocytes % (Manual) 7 (4-12) % Sodium 137 (135-145) mmol/L Potassium 4.7 D (3.5-5.3) mmol/L Chloride 100 (100-110) mmol/L Carbon Dioxide 17 L (21-32) mmol/L BUN 16 D (7-18) mg/dL Creatinine 1.1 (0.70-1.30) mg/dL Est Cr Clr Drug Dosing 83.39 mL/min Estimated GFR (MDRD) > 60 (>60) BUN/Creatinine Ratio 14.5 (9-20) Glucose 111 (80-116) mg/dL Calcium 8.1 L (8.6-10.2) mg/dL Total Bilirubin 2.0 H (0.1-1.3) mg/dL AST 122 H D (5-25) IU/L ALT 126 H D (12-36) U/L Alkaline Phosphatase 78 (56-112) IU/L Total Protein 7.9 (6.0-8.0) g/dL Albumin 3.6 (3.5-5.2) g/dL Globulin 4.3 g/dL Albumin/Globulin Ratio 0.8 Amylase 98 (25-115) U/L Lipase > 1500 H (73-393) U/L Ethyl Alcohol < 0.03 (<0.03) % Meds: Medications Generic Name Dose Route Start Last Admin Trade Name Freq PRN Reason Stop Dose Admin Sodium Chloride 1,000 mls @ 999 mls/hr 01/07/19 22:40 01/07/19 22:40 Normal Saline IV 999 mls/hr ASDIRECTED ANJELICA Administration Sodium Chloride 1,000 mls @ 150 mls/hr 01/08/19 00:15 Normal Saline IV ASDIRECTED ANJELICA Lorazepam 1 mg 01/08/19 00:10 Ativan IVPUSH Q8H PRN Anxiety Morphine Sulfate 4 mg 01/08/19 00:10 Morphine IVPUSH Q4H PRN Pain Ondansetron HCl 4 mg 01/08/19 00:15 Zofran IVPUSH Q4H ANJELICA Sodium Chloride 10 ml 01/07/19 22:35 01/07/19 22:40 Saline Flush FLUSH 10 ml ASDIRECTED PRN Administration Keep Vein Open Discontinued Medications Generic Name Dose Route Start Last Admin Trade Name Freq PRN Reason Stop Dose Admin Lorazepam 1 mg 01/07/19 23:23 01/07/19 23:34 Ativan IVPUSH 01/07/19 23:24 1 mg ONETIME ONE Administration Ondansetron HCl 4 mg 01/07/19 23:23 01/07/19 23:32 Zofran IVPUSH 01/07/19 23:24 4 mg ONETIME ONE Administration Departure - Departure Time of Disposition: 00:15 Disposition: Admitted As Inpatient 66 Clinical Impression: Acute pancreatitis - Discharge Information Referrals: PCP,None [Primary Care Provider] - Forms: ED Department Discharge - My Orders Last 24 Hours: My Active Orders 01/07/19 22:35 Sodium Chloride 0.9% [Saline Flush] 10 ml FLUSH ASDIRECTED PRN Peripheral IV Insertion Adult [OM.PC] Routine 01/07/19 22:40 Sodium Chloride 0.9% [Normal Saline] 1,000 ml IV ASDIRECTED 01/08/19 00:06 Patient Status [ADT] Routine Pulse Oximetry [RC] PRN Up ad Yulia [RC] ASDIRECTED Vital Signs [RC] Q4H DVT/VTE Prophylaxis Reflex [OM.PC] Per Unit Routine Resuscitation Status Routine 01/08/19 00:08 Antiembolic Devices [RC] .Routine VTE/DVT Education [RC] Click to Edit 01/08/19 00:10 LORazepam [Ativan] 1 mg IVPUSH Q8H PRN Morphine 4 mg IVPUSH Q4H PRN 01/08/19 00:12 COMPREHENSIVE METABOLIC PN,CMP [CHEM] Stat 01/08/19 00:15 Ondansetron [Zofran] 4 mg IVPUSH Q4H Sodium Chloride 0.9% @ 150 MLS/HR (1000ml) Sodium Chloride 0.9% [Normal Saline] 1,000 ml IV ASDIRECTED 01/08/19 07:00 LIPASE [CHEM] Stat 01/08/19 Breakfast Nothing per Oral Now Diet [DIET] - Assessment/Plan Last 24 Hours: My Active Orders 01/07/19 22:35 Sodium Chloride 0.9% [Saline Flush] 10 ml FLUSH ASDIRECTED PRN Peripheral IV Insertion Adult [OM.PC] Routine 01/07/19 22:40 Sodium Chloride 0.9% [Normal Saline] 1,000 ml IV ASDIRECTED 01/08/19 00:06 Patient Status [ADT] Routine Pulse Oximetry [RC] PRN Up ad Yulia [RC] ASDIRECTED Vital Signs [RC] Q4H DVT/VTE Prophylaxis Reflex [OM.PC] Per Unit Routine Resuscitation Status Routine 01/08/19 00:08 Antiembolic Devices [RC] .Routine VTE/DVT Education [RC] Click to Edit 01/08/19 00:10 LORazepam [Ativan] 1 mg IVPUSH Q8H PRN Morphine 4 mg IVPUSH Q4H PRN 01/08/19 00:12 COMPREHENSIVE METABOLIC PN,CMP [CHEM] Stat 01/08/19 00:15 Ondansetron [Zofran] 4 mg IVPUSH Q4H Sodium Chloride 0.9% @ 150 MLS/HR (1000ml) Sodium Chloride 0.9% [Normal Saline] 1,000 ml IV ASDIRECTED 01/08/19 07:00 LIPASE [CHEM] Stat 01/08/19 Breakfast Nothing per Oral Now Diet [DIET]
[2019-01-08] MEDS ORDERED: LORazepam 2 MG/ML SDV IVPUSH PRN (00:10)
[2019-01-08] MEDS ORDERED: Morphine 2 MG/ML Syringe IVPUSH PRN (00:10)
[2019-01-08] MEDS ORDERED: Ondansetron 4 MG/2 ML SDV IVPUSH SCH (00:15)
[2019-01-08] MEDS: Sodium Chloride 0.9% 1,000 ML IV SCH ×4 (00:15→20:04)
[2019-01-08] MEDS ORDERED: Ondansetron 4 MG/2 ML SDV IVPUSH PRN (00:19)
[2019-01-08] MEDS ORDERED: LORazepam 2 MG/ML SDV ONE (01:12)
[2019-01-08] MEDS: LORazepam 2 MG/ML SDV IVPUSH PRN (01:30)
--- NOTE | 2019-01-08 10:03 | PCM.HP.2 ---
H&P History of Present Illness - General Date of Service: 01/08/19 Admit Problem/Dx: Admission Diagnosis/Problem Admission Diagnosis/Problem Acute pancreatitis Source of Information: Patient History Limitations: Reports: No Limitations - History of Present Illness Initial Comments - Free Text/Narative: Shiv is a 28-year-old male who was admitted last night for pain mostly in the epigastrium and right upper quadrant. Associated vomiting, nausea, agitation and anxiety. He has had problems with alcohol abuse,but last drink was about 48 hours ago. In addition he's been taking lorazepam 3 times a day prescribed from his physician at [facility], and he was out. He does not endorse any diarrhea hematemesis, headache chest pain or shortness of breath. ABDOMEN PAIN Pain Score (Numeric/FACES): 8 - Related Data Allergies/Adverse Reactions: Allergies Allergy/AdvReac Type Severity Reaction Status Date / Time bees Allergy Cannot Uncoded 01/07/19 22:34 Remember Home Medications: Home Meds LORazepam [Ativan] 0.5 mg PO Q8H PRN #10 tablet 11/17/18 [Rx] Past Medical History Respiratory History: Reports: Asthma Gastrointestinal History: Reports: GERD Psychiatric History: Reports: Addiction, Anxiety, Depression, Panic Attack Other Psychiatric History: Alcohol abuse, withdrawal issues. Marijuana use - Past Surgical History HEENT Surgical History: Reports: Myringotomy w Tube(s) Social & Family History - Family History Family Medical History: Noncontributory - Tobacco Use Smoking Status *Q: Current Every Day Smoker Years of Tobacco use: 14 Packs/Tins Daily: 1 Second Hand Smoke Exposure: Yes - Caffeine Use Caffeine Use: Reports: Coffee, Soda - Alcohol Use Days Per Week of Alcohol Use: 7 Number of Drinks Per Day: 6 Total Drinks Per Week: 42 Date of Last Drink: 01/06/19 - Recreational Drug Use Recreational Drug Use: Yes Recreational Drug Type: Reports: Marijuana/Hashish Recreational Drug Use Frequency: Binges H&P Review of Systems - Review of Systems: Review Of Systems: Comprehensive ROS is negative, except as noted in HPI. Exam - Exam Exam: See Below - Vital Signs Vital Signs: Last Vital Signs Temp 98.0 F 01/08/19 04:06 Pulse 82 01/08/19 04:06 Resp 16 01/08/19 04:06 BP 136/76 01/08/19 04:06 Pulse Ox 98 01/08/19 04:06 Weight: 54.658 kg - Exam General: Alert, Oriented, 4 HEENT: PERRLA, Hearing Intact, Mucosa Moist & [place], Nares Patent, Normal Nasal Septum, Posterior Pharynx Clear, Conjunctiva Clear, EOMI, EACs Clear, TMs Clear Neck: Supple, Trachea Midline, 2 Lungs: Clear to Auscultation, Normal Respiratory Effort Cardiovascular: Regular Rate, Regular Rhythm GI/Abdominal Exam: Normal Bowel Sounds, Soft, No Organomegaly, No Distention, Guarding, Tender (RUQ) (Male) Exam: Deferred Rectal (Males) Exam: Deferred Back Exam: Normal Inspection, Full Range of Motion, NT Extremities: Normal Inspection, Normal Range of Motion, Non-Tender, No Pedal Edema, Normal Capillary Refill Skin: Warm, Dry, Intact Neurological: Cranial Nerves Intact, Reflexes Equal Bilateral Neuro Extensive - Mental Status: Alert, Oriented x3, Normal Mood/Affect, Normal Cognition Neuro Extensive - Motor, Sensory, Reflexes: CN II-XII Intact, Normal Gait, Normal Reflexes Psychiatric: Alert, Normal Affect, Normal Mood - Patient Data Lab Results Last 24 hrs: Laboratory Results - last 24 hr 01/07/19 01/07/19 01/07/19 Range/Units 23:38 23:38 23:38 WBC 13.4 H (4.5-12.0) X10-3/uL RBC 4.44 (4.30-5.75) x10(6)uL Hgb 15.5 (13.5-17.8) g/dL Hct 44.4 (30.0-51.3) % MCV 100.0 H (80-96) fL MCH 34.9 H (27.7-33.6) pg MCHC 34.9 (32.2-35.4) g/dL RDW 12.3 (11.5-15.5) % Plt Count 150 (125-369) X10(3)uL MPV 8.3 (7.4-10.4) fL Add Manual Diff Yes Neutrophils % (Manual) 82 (46-82) % Band Neutrophils % 1 (0-6) % Lymphocytes % (Manual) 10 L (13-37) % Monocytes % (Manual) 7 (4-12) % Sodium 137 (135-145) mmol/L Potassium 4.7 D (3.5-5.3) mmol/L Chloride 100 (100-110) mmol/L Carbon Dioxide 17 L (21-32) mmol/L BUN 16 D (7-18) mg/dL Creatinine 1.1 (0.70-1.30) mg/dL Est Cr Clr Drug Dosing 83.39 mL/min Estimated GFR (MDRD) > 60 (>60) BUN/Creatinine Ratio 14.5 (9-20) Glucose 111 (80-116) mg/dL Calcium 8.1 L (8.6-10.2) mg/dL Total Bilirubin 2.0 H (0.1-1.3) mg/dL AST 122 H D (5-25) IU/L ALT 126 H D (12-36) U/L Alkaline Phosphatase 78 (56-112) IU/L Total Protein 7.9 (6.0-8.0) g/dL Albumin 3.6 (3.5-5.2) g/dL Globulin 4.3 g/dL Albumin/Globulin Ratio 0.8 Amylase 98 (25-115) U/L Lipase > 1500 H (73-393) U/L Ethyl Alcohol < 0.03 (<0.03) % 01/08/19 01/08/19 Range/Units 06:58 06:58 WBC (4.5-12.0) X10-3/uL RBC (4.30-5.75) x10(6)uL Hgb (13.5-17.8) g/dL Hct (30.0-51.3) % MCV (80-96) fL MCH (27.7-33.6) pg MCHC (32.2-35.4) g/dL RDW (11.5-15.5) % Plt Count (125-369) X10(3)uL MPV (7.4-10.4) fL Add Manual Diff Neutrophils % (Manual) (46-82) % Band Neutrophils % (0-6) % Lymphocytes % (Manual) (13-37) % Monocytes % (Manual) (4-12) % Sodium 135 (135-145) mmol/L Potassium 4.2 (3.5-5.3) mmol/L Chloride 101 (100-110) mmol/L Carbon Dioxide 17 L (21-32) mmol/L BUN 14 (7-18) mg/dL Creatinine 1.0 (0.70-1.30) mg/dL Est Cr Clr Drug Dosing 85.02 mL/min Estimated GFR (MDRD) > 60 (>60) BUN/Creatinine Ratio 14.0 (9-20) Glucose 87 (80-116) mg/dL Calcium 8.1 L (8.6-10.2) mg/dL Total Bilirubin 1.8 H (0.1-1.3) mg/dL AST 95 H D (5-25) IU/L ALT 103 H D (12-36) U/L Alkaline Phosphatase 66 (56-112) IU/L Total Protein 7.0 (6.0-8.0) g/dL Albumin 3.3 L (3.5-5.2) g/dL Globulin 3.7 g/dL Albumin/Globulin Ratio 0.9 Amylase (25-115) U/L Lipase > 1500 H (73-393) U/L Ethyl Alcohol (<0.03) % Result Diagrams: 01/07/19 23:38 01/08/19 06:58 - Problem List (1) Acute pancreatitis SNOMED Code(s): 740705087 ICD Code: K85.90 - ACUTE PANCREATITIS WITHOUT NECROSIS OR INFECTION, UNSP Status: Acute Current Visit: Yes Qualifiers: Pancreatitis type: alcohol induced (2) Anxiety SNOMED Code(s): 25132706 ICD Code: F41.9 - ANXIETY DISORDER, UNSPECIFIED Status: Acute Current Visit: Yes (3) Alcohol abuse SNOMED Code(s): 82195881 ICD Code: F10.10 - ALCOHOL ABUSE, UNCOMPLICATED Status: Acute Current Visit: No (4) Alcohol withdrawal SNOMED Code(s): 772268231 ICD Code: F10.239 - ALCOHOL DEPENDENCE WITH WITHDRAWAL, UNSPECIFIED Status : Acute Current Visit: No Qualifiers: Complication of substance-induced condition: uncomplicated Qualified Code(s ): F10.230 - Alcohol dependence with withdrawal, uncomplicated (5) Alcoholic liver disease SNOMED Code(s): 66186703 ICD Code: K70.9 - ALCOHOLIC LIVER DISEASE, UNSPECIFIED Status: Acute Current Visit: No Problem List Initiated/Reviewed/Updated: Yes Orders Last 24hrs: Active Orders 24 hr Category Date Time Status Patient Status [ADT] Routine ADT 01/08/19 00:06 Active Antiembolic Devices [RC] .Routine Care 01/08/19 00:08 Active Pulse Oximetry [RC] PRN Care 01/08/19 00:06 Active Up ad Yulia [RC] ASDIRECTED Care 01/08/19 00:06 Active VTE/DVT Education [RC] Click to Edit Care 01/08/19 00:08 Active Vital Signs [RC] Q4H Care 01/08/19 00:06 Active Nothing per Oral Now Diet [DIET] Diet 01/08/19 Breakfast Active Regular Diet [DIET] Diet 01/08/19 Lunch Ordered Abdomen Pelvis w wo Cont [CT] Routine Exams 01/08/19 09:58 Ordered LORazepam [Ativan] Med 01/08/19 01:08 Active 1 mg IVPUSH Q1H PRN Morphine Med 01/08/19 00:10 Active 4 mg IVPUSH Q4H PRN Ondansetron [Zofran] Med 01/08/19 00:19 Active 4 mg IVPUSH Q4H PRN Sodium Chloride 0.9% [Normal Saline] 1,000 ml Med 01/07/19 22:40 Active IV ASDIRECTED Sodium Chloride 0.9% [Normal Saline] 1,000 ml Med 01/08/19 00:15 Active IV ASDIRECTED Sodium Chloride 0.9% [Saline Flush] Med 01/07/19 22:35 Active 10 ml FLUSH ASDIRECTED PRN DVT/VTE Prophylaxis Reflex [OM.PC] Per Unit Routine Oth 01/08/19 00:06 Ordered Peripheral IV Insertion Adult [OM.PC] Routine Oth 01/07/19 22:35 Ordered Resuscitation Status Routine Resus Stat 01/08/19 00:06 Ordered Medication Orders Sodium Chloride (Normal Saline) 1,000 mls @ 999 mls/hr IV ASDIRECTED [facility] Last Admin: 01/07/19 22:40 Dose: 999 mls/hr Sodium Chloride (Normal Saline) 1,000 mls @ 150 mls/hr IV ASDIRECTED [facility] Last Admin: 01/08/19 06:18 Dose: 150 mls/hr Infusion: 01/08/19 06:18 Dose: 150 mls/hr Admin: 01/08/19 00:15 Dose: 150 mls/hr Lorazepam (Ativan) 1 mg IVPUSH Q1H PRN PRN Reason: CIWA Score >/= 10 Last Admin: 01/08/19 01:30 Dose: 1 mg Morphine Sulfate (Morphine) 4 mg IVPUSH Q4H PRN PRN Reason: Pain Ondansetron HCl (Zofran) 4 mg IVPUSH Q4H PRN PRN Reason: Nausea Sodium Chloride (Saline Flush) 10 ml FLUSH ASDIRECTED PRN PRN Reason: Keep Vein Open Last Admin: 01/07/19 22:40 Dose: 10 ml Assessment/Plan Comment:: Doc got 2 mg in the hospital overnight some fluids and was kept nothing by mouth. He has improved somewhat this morning but still has some residual painin the right upper quadrant. I will obtain a CT of the abdomen and pelvis, since his lipase was more than 1500. I will advance his diet, possibly discharge later today he is able to tolerate orals - Mortality Measure Prognosis:: Good
[2019-01-08] MEDS ORDERED: Iopamidol 755 Mg/ML 100 ML Bottle IV ONE (11:10)
[2019-01-08] MEDS ORDERED: Pantoprazole 40 MG Vial IVPUSH SCH (21:00)
[2019-01-09] MEDS: LORazepam 2 MG/ML SDV IVPUSH PRN (02:10)
[2019-01-09] MEDS: Sodium Chloride 0.9% 10 ML Syringe FLUSH PRN (02:10)
[2019-01-09] MEDS: Sodium Chloride 0.9% 1,000 ML IV SCH (02:15)
--- NOTE | 2019-01-09 09:02 | PCM.PN ---
- General Info Date of Service: 01/09/19 Admission Dx/Problem (Free Text): patient states he feels good. He has no abdominal pain, nausea, vomiting, fevers. His move his bowels and passing bowel gas. - Patient Data Vitals - Most Recent: Last Vital Signs Temp 98.5 F 01/09/19 08:00 Pulse 87 01/09/19 08:00 Resp 16 01/09/19 08:00 BP 140/90 01/09/19 08:00 Pulse Ox 99 01/09/19 08:00 Weight - Most Recent: 120 lb 8 oz I&O - Last 24 Hours: Intake & Output 01/08/19 01/09/19 01/09/19 22:59 06:59 14:59 Intake Total 1340 1214 Balance 1340 1214 Lab Results Last 24 Hours: Laboratory Results - last 24 hr 01/09/19 01/09/19 Range/Units 06:10 06:10 Sodium 138 (135-145) mmol/L Potassium 3.2 L D (3.5-5.3) mmol/L Chloride 101 (100-110) mmol/L Carbon Dioxide 28 (21-32) mmol/L BUN 5 L (7-18) mg/dL Creatinine 0.6 L (0.70-1.30) mg/dL Est Cr Clr Drug Dosing 141.71 mL/min Estimated GFR (MDRD) > 60 (>60) BUN/Creatinine Ratio 8.3 L (9-20) Glucose 93 (80-116) mg/dL Calcium 8.4 L (8.6-10.2) mg/dL Total Bilirubin 1.2 (0.1-1.3) mg/dL AST 79 H D (5-25) IU/L ALT 88 H D (12-36) U/L Alkaline Phosphatase 69 (56-112) IU/L Total Protein 6.6 (6.0-8.0) g/dL Albumin 3.1 L (3.5-5.2) g/dL Globulin 3.5 g/dL Albumin/Globulin Ratio 0.9 Lipase 988 H (73-393) U/L Med Orders - Current: Current Medications Sodium Chloride (Normal Saline) 1,000 mls @ 150 mls/hr IV ASDIRECTED ANJELICA Last Admin: 01/09/19 02:15 Dose: 150 mls/hr Lorazepam (Ativan) 1 mg IVPUSH Q1H PRN PRN Reason: CIWA Score >/= 10 Last Admin: 01/09/19 02:10 Dose: 1 mg Morphine Sulfate (Morphine) 4 mg IVPUSH Q4H PRN PRN Reason: Pain Ondansetron HCl (Zofran) 4 mg IVPUSH Q4H PRN PRN Reason: Nausea Last Admin: 01/08/19 11:12 Dose: 4 mg Pantoprazole Sodium (Protonix Iv) 40 mg IVPUSH BEDTIME [facility] Last Admin: 01/08/19 22:14 Dose: 40 mg Sodium Chloride (Saline Flush) 10 ml FLUSH ASDIRECTED PRN PRN Reason: Keep Vein Open Last Admin: 01/09/19 02:10 Dose: 10 ml Discontinued Medications Sodium Chloride (Normal Saline) 1,000 mls @ 999 mls/hr IV ASDIRECTED ANJELICA Last Admin: 01/07/19 22:40 Dose: 999 mls/hr Iopamidol (Isovue-370 (76%)) 100 ml IV ONETIME ONE Stop: 01/08/19 11:11 Last Admin: 01/08/19 11:19 Dose: 85 ml Lorazepam (Ativan) 1 mg IVPUSH ONETIME ONE Stop: 01/07/19 23:24 Last Admin: 01/07/19 23:34 Dose: 1 mg Lorazepam (Ativan) 1 mg IVPUSH Q8H PRN PRN Reason: Anxiety Lorazepam (Ativan) Confirm Administered Dose 2 mg .ROUTE .STK-MED ONE Stop: 01/08/19 01:13 Last Admin: 01/08/19 01:37 Dose: Not Given Ondansetron HCl (Zofran) 4 mg IVPUSH ONETIME ONE Stop: 01/07/19 23:24 Last Admin: 01/07/19 23:32 Dose: 4 mg Ondansetron HCl (Zofran) 4 mg IVPUSH Q4H [facility] Last Admin: 01/08/19 01:38 Dose: Not Given - Exam General: Alert, Oriented, Cooperative Lungs: Normal Respiratory Effort GI/Abdominal Exam: Normal Bowel Sounds, Soft, Non-Tender, No Organomegaly, No Distention, No Abnormal Bruit, No Mass - Problem List & Annotations (1) Smoking SNOMED Code(s): 94864466 Code(s): F17.200 - NICOTINE DEPENDENCE, UNSPECIFIED, UNCOMPLICATED Status: Acute Current Visit: Yes (2) Acute pancreatitis SNOMED Code(s): 784361102 Code(s): K85.90 - ACUTE PANCREATITIS WITHOUT NECROSIS OR INFECTION, UNSP Status: Acute Current Visit: Yes Qualifiers: Pancreatitis type: alcohol induced (3) Alcohol abuse SNOMED Code(s): 55410498 Code(s): F10.10 - ALCOHOL ABUSE, UNCOMPLICATED Status: Acute Current Visit: No (4) Withdrawal from sedative drug SNOMED Code(s): 03929331749540 Code(s): F13.239 - SEDATV/HYP/ANXIOLYTC DEPENDENCE W WITHDRAWAL, UNSP Status: Acute Current Visit: Yes (5) Anxiety SNOMED Code(s): 43690993 Code(s): F41.9 - ANXIETY DISORDER, UNSPECIFIED Status: Acute Current Visit: Yes - Problem List Review Problem List Initiated/Reviewed/Updated: Yes - Plan Plan:: 1. Discharge to home. 2. Recheck in one week in the clinic with a lipase and BMP. 3.discussed smoking cessation. 4. Discuss that he should abstain from alcohol. Did talk to him if he needs treatment defers at this time. 5. There is anxiety recommend he be a SSRI. He wants to research this before he tries it.
--- NOTE | 2019-01-09 09:11 | PCM.DCSUM1 ---
Discharge Summary - Hospital Course Free Text/Narrative:: hospital course-patient was admitted initially put on bowel rest. Is given IV pain medication. His lipase was greater than 1500. His LFTs were evated. He had a CT scan showed pancreatitis with no cysts or necrosis. His diet was advanced and he did well and day of discharge he is asymptomatic. His potassium was down a little bit red but should correct with normal diet. Discuss alcohol use of the patient and he understands he shouldn't be drinking anymore otherwise he'll continue have this problem. Smoking cessation was also discussed with him. He has history of anxiety only takes Ativan for. I recommended SSRI but he wants to do research before he would consider taking this medication. Brief History: Shiv is a 28-year-old male who was admitted last night for pain mostly in the epigastrium and right upper quadrant. Associated vomiting, nausea , agitation and anxiety. He has had problems with alcohol abuse,but last drink was about 48 hours ago. In addition he's been taking lorazepam 3 times a day prescribed from his physician at [facility], and he was out. He does not endorse any diarrhea hematemesis, headache chest pain or shortness of breath. Diagnosis: Stroke: No - Discharge Data Discharge Date: 01/09/19 Discharge Disposition: Home, Self-Care 01 Condition: Good - Referral to Home Health Primary Care Physician: PCP None - Discharge Diagnosis/Problem(s) (1) Smoking SNOMED Code(s): 42476857 ICD Code: F17.200 - NICOTINE DEPENDENCE, UNSPECIFIED, UNCOMPLICATED Status : Acute Current Visit: Yes (2) Acute pancreatitis SNOMED Code(s): 403277346 ICD Code: K85.90 - ACUTE PANCREATITIS WITHOUT NECROSIS OR INFECTION, UNSP Status: Acute Current Visit: Yes Qualifiers: Pancreatitis type: alcohol induced (3) Alcohol abuse SNOMED Code(s): 01249050 ICD Code: F10.10 - ALCOHOL ABUSE, UNCOMPLICATED Status: Acute Current Visit: No (4) Withdrawal from sedative drug SNOMED Code(s): 14115392015348 ICD Code: F13.239 - SEDATV/HYP/ANXIOLYTC DEPENDENCE W WITHDRAWAL, UNSP Status: Acute Current Visit: Yes (5) Anxiety SNOMED Code(s): 64417709 ICD Code: F41.9 - ANXIETY DISORDER, UNSPECIFIED Status: Acute Current Visit: Yes - Patient Instructions Diet: Regular Diet as Tolerated Activity: As Tolerated Driving: May Drive Today Showering/Bathing: May Shower Notify Provider of: Fever, Increased Pain, Nausea and/or Vomiting Other/Special Instructions: 1. Recheck with Dr. Mirza in 1 week with BMP and lipase. 2. Abstain from alcohol. - Discharge Plan Home Medications: Home Meds LORazepam [Ativan] 0.5 mg PO Q8H PRN #10 tablet 11/17/18 [Rx] Forms: ED Department Discharge Referrals: PCP,None [Primary Care Provider] - - Discharge Summary/Plan Comment DC Time >30 min.: No - Patient Data Vitals - Most Recent: Last Vital Signs Temp 98.5 F 01/09/19 08:00 Pulse 87 01/09/19 08:00 Resp 16 01/09/19 08:00 BP 140/90 01/09/19 08:00 Pulse Ox 99 01/09/19 08:00 Weight - Most Recent: 120 lb 8 oz I&O - Last 24 hours: Intake & Output 01/08/19 01/09/19 01/09/19 22:59 06:59 14:59 Intake Total 1340 1214 Balance 1340 1214 Lab Results - Last 24 hrs: Laboratory Results - last 24 hr 01/09/19 01/09/19 Range/Units 06:10 06:10 Sodium 138 (135-145) mmol/L Potassium 3.2 L D (3.5-5.3) mmol/L Chloride 101 (100-110) mmol/L Carbon Dioxide 28 (21-32) mmol/L BUN 5 L (7-18) mg/dL Creatinine 0.6 L (0.70-1.30) mg/dL Est Cr Clr Drug Dosing 141.71 mL/min Estimated GFR (MDRD) > 60 (>60) BUN/Creatinine Ratio 8.3 L (9-20) Glucose 93 (80-116) mg/dL Calcium 8.4 L (8.6-10.2) mg/dL Total Bilirubin 1.2 (0.1-1.3) mg/dL AST 79 H D (5-25) IU/L ALT 88 H D (12-36) U/L Alkaline Phosphatase 69 (56-112) IU/L Total Protein 6.6 (6.0-8.0) g/dL Albumin 3.1 L (3.5-5.2) g/dL Globulin 3.5 g/dL Albumin/Globulin Ratio 0.9 Lipase 988 H (73-393) U/L Med Orders - Current: Current Medications Sodium Chloride (Normal Saline) 1,000 mls @ 150 mls/hr IV ASDIRECTED COUNTS INCLUDE 234 BEDS AT THE [facility] Last Admin: 01/09/19 02:15 Dose: 150 mls/hr Lorazepam (Ativan) 1 mg IVPUSH Q1H PRN PRN Reason: CIWA Score >/= 10 Last Admin: 01/09/19 02:10 Dose: 1 mg Morphine Sulfate (Morphine) 4 mg IVPUSH Q4H PRN PRN Reason: Pain Ondansetron HCl (Zofran) 4 mg IVPUSH Q4H PRN PRN Reason: Nausea Last Admin: 01/08/19 11:12 Dose: 4 mg Pantoprazole Sodium (Protonix Iv) 40 mg IVPUSH BEDTIME COUNTS INCLUDE 234 BEDS AT THE [facility] Last Admin: 01/08/19 22:14 Dose: 40 mg Sodium Chloride (Saline Flush) 10 ml FLUSH ASDIRECTED PRN PRN Reason: Keep Vein Open Last Admin: 01/09/19 02:10 Dose: 10 ml Discontinued Medications Sodium Chloride (Normal Saline) 1,000 mls @ 999 mls/hr IV ASDIRECTED COUNTS INCLUDE 234 BEDS AT THE [facility] Last Admin: 01/07/19 22:40 Dose: 999 mls/hr Iopamidol (Isovue-370 (76%)) 100 ml IV ONETIME ONE Stop: 01/08/19 11:11 Last Admin: 01/08/19 11:19 Dose: 85 ml Lorazepam (Ativan) 1 mg IVPUSH ONETIME ONE Stop: 01/07/19 23:24 Last Admin: 01/07/19 23:34 Dose: 1 mg Lorazepam (Ativan) 1 mg IVPUSH Q8H PRN PRN Reason: Anxiety Lorazepam (Ativan) Confirm Administered Dose 2 mg .ROUTE .STK-MED ONE Stop: 01/08/19 01:13 Last Admin: 01/08/19 01:37 Dose: Not Given Ondansetron HCl (Zofran) 4 mg IVPUSH ONETIME ONE Stop: 01/07/19 23:24 Last Admin: 01/07/19 23:32 Dose: 4 mg Ondansetron HCl (Zofran) 4 mg IVPUSH Q4H [facility] Last Admin: 01/08/19 01:38 Dose: Not Given
--- NOTE | 2019-01-09 15:12 | PN ---
DATE SEEN: 01/08/2019 I had a discussion with the radiologist, and the CT scan revealed a fatty liver, along with fat stranding around the pancreas and duodenum. The patient has minimal pain tonight but still has some epigastric pain. I elected to keep him 1 more day, repeat some labs in the morning, and continue IV fluids and lorazepam p.r.n. I also gave him Protonix IV. /[id number] MARCY/GORDON
== END 2019-01-09 09:20 | disposition home or self-care (01) | DRG 439 ==
LOC: FB.ED 22:22 → FB.MS 01-08 00:10
PROVIDERS: ADMIT Family Medicine; ATTEND Family Medicine
DX: K85.90 Acute pancreatitis without necrosis or infection, unspecified (principal); F10.188 Alcohol abuse with other alcohol-induced disorder; F13.239 Sedative, hypnotic or anxiolytic dependence with withdrawal, unspecified; K21.9 Gastro-esophageal reflux disease without esophagitis; F41.9 Anxiety disorder, unspecified; F17.200 Nicotine dependence, unspecified, uncomplicated; F10.10 Alcohol abuse, uncomplicated; Y90.9 Presence of alcohol in blood, level not specified; F32.9 Major depressive disorder, single episode, unspecified; Z79.899 Other long term (current) drug therapy; F17.210 Nicotine dependence, cigarettes, uncomplicated; K76.0 Fatty (change of) liver, not elsewhere classified; K70.9 Alcoholic liver disease, unspecified; J45.909 Unspecified asthma, uncomplicated; Z91.030 Bee allergy status; Y90.1 Blood alcohol level of 20-39 mg/100 ml
CPT/HCPCS: 36415; 74177; 80053; 82150; 83690; 85025; 96361; 96374; 96375; 99284-25; C9113; G0480; J2060; J2405; J7030; Q9967

== ENCOUNTER 2019-07-13 02:19 | Emergency (ER) | payer OTHER ==
[2019-07-13] MEDS: Sodium Chloride 0.9% 10 ML Syringe FLUSH PRN ×3 (02:25→02:35)
[2019-07-13] MEDS ORDERED: EPINEPHrine 1:10,000 1 MG/10 ML Syringe IVPUSH ONE ×3 (02:35→02:57)
[2019-07-13] MEDS ORDERED: EPINEPHrine 1 MG/ML 30 ML MDV IVPUSH ONE ×2 (02:35→02:38)
[2019-07-13] MEDS ORDERED: Sodium Chloride 0.9% 1,000 ML IV ONE ×3 (02:35→03:09)
[2019-07-13] MEDS ORDERED: Lactated Ringers 1,000 ML IV ONE (03:10)
[2019-07-13] MEDS ORDERED: Lactated Ringers 1,000 ML IV SCH (03:10)
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
== END 2019-07-13 07:40 | disposition expired ==
LOC: FB.ED 02:19 → EDUNIT# 02:19 → FB.ED 07:40
DX: S06.6X9A Traumatic subarachnoid hemorrhage with loss of consciousness of unspecified duration, initial encounter (principal); S12.591A Other nondisplaced fracture of sixth cervical vertebra, initial encounter for closed fracture; S22.43XA Multiple fractures of ribs, bilateral, initial encounter for closed fracture; S27.321A Contusion of lung, unilateral, initial encounter; V48.5XXA Car driver injured in noncollision transport accident in traffic accident, initial encounter
CPT/HCPCS: 31500; 36415; 51702; 70450; 71045; 72125; 80305; 85025; 87635; 92950; 96361; 96374; 99285; J0171; J7030; J7120; U0002